=== PATIENT | female | born 1975 | race Caucasian/White ===

== ENCOUNTER 2021-12-12 09:36 | Outpatient (REF) | payer OTHER, SELFPAY ==
--- NOTE | ~2021-12-12 | CT_ITS ---
EXAMINATION: CT HEAD WITHOUT CONTRAST CLINICAL INFORMATION: Intractable headache COMPARISON: May 14, 2006 report TECHNIQUE: Contiguous axial imaging was performed from the skull base to vertex without intravenous administration of contrast. This CT examination was performed using dose optimization techniques as appropriate, variously including the following: *Automated exposure control *Adjustment of mA and/or kV according to patient size (this includes techniques or standardized protocols for targeted exams where dose is matched to indication/reason for exam; i.e. extremities or head) *Use of iterative reconstruction technique DLP: 629 mGy-cm FINDINGS: There is no evidence of acute intracranial hemorrhage or territorial infarction. No abnormal mass effect or midline shift is seen. Bosch to white matter differentiation is well preserved. No extra-axial fluid collections are identified. The ventricles are normal in size. There is no abnormal attenuation within the brain parenchyma. The osseous structures and soft tissues are normal. The visualized portions of the paranasal sinuses are well aerated. There is partial opacification of some right mastoid air cells. CT/CT head/brain wo con IMPRESSION: No acute intracranial pathology. Opacification of some right mastoid air cells.
--- NOTE | 2021-12-12 09:59 | EMG_ITS ---
This is a 46-year-old woman with a history of fibromyalgia for which she takes Tylenol with Codeine, who comes in with more than 1 year history of bilateral upper extremity numbness in the arms with the hands and arms going sleep. Neurological examination is normal. No Tinel or Phalen sign. IMPRESSION: Rule out neuropathy, rule out carpal tunnel syndrome. Nerve conduction EMG study: Normal motor and sensory nerve conduction velocities in the upper extremities. Normal EMG of the right C5-T1 innervated muscles. MD MONSE Roger/JOANN / [id number]
== END 2021-12-12 09:37 | disposition home or self-care (01) ==
LOC: HO.CT 09:36
PROVIDERS: PCP Internal Medicine; Visit Provider Internal Medicine
DX: G43.909 Migraine, unspecified, not intractable, without status migrainosus (principal); M54.12 Radiculopathy, cervical region
CPT/HCPCS: 70450; 95885; 95913

== ENCOUNTER 2023-10-17 10:54 | Outpatient (AMB) | payer OTHER, SELFPAY ==
[2023-10-17 10:56] VITALS: BP 110/64; PULSE 69; O2SAT 98; BMI 24.5
--- NOTE | 2023-10-17 10:56 | MHC.PC.OV ---
Vital Signs 10/17/23 10:56 Height 5 ft 2 in Weight 134 lb BMI 24.5 BP 110/64 Blood Pressure Location Lt brachial Position Sitting Pulse 69 Pulse Source Pulse Oximeter Pulse Oximetry (%) 98 Oxygen Delivery Method Room Air Intake Visit Reasons: follow up r/s from 10/14/23 Territory Manager Required: No Accompanied by: Self / Same As Patient Allergies aspirin Allergy (Unknown, Verified 10/17/23 12:08) Unknown ibuprofen [From Motrin] Allergy (Unknown, Verified 10/17/23 12:08) Unknown Medication List - Last Reconciled 10/17/23 by Troy Rush MD acetaminophen-codeine 300-60 mg 1 tab PO TID 14 days kgwzzkokiw-kqfkrhzmdkomx-zxhm 50-325-40 mg 1 tab PO BID-TID PRN 7 days Tobacco use date assessed: 10/17/23 Dental Screening Dental Screen Date: 10/17/23 Did you have a dental visit in the last 12 months?: No Did you have a dental problem in the last 6 months where you did not have access to dental care?: No Was dental information given to patient?: No HPI follow up r/s from 10/14/23 HPI Details Patient comes in today for her follow up visit States that she continues to experience recurrent headaches and needs her Fioricet Rx refilled Has also been experiencing increased pain over her left lower back lately Notes that the pain would often radiate down the back of her left leg She denies any recent injury or trauma to her lower back Also reports experiencing frequent pain and aching over both her shoulders and shoulder blade areas for while now - states that some days are better than others She denies any dizziness Denies any chest pains, no SOB No nausea/vomiting, no abdominal pain No change in bowel habits noted Is still not able to get her previously ordered labs done - states that she will try to get them done this weekend [facility] Medical History Radicular syndrome of upper limbs Smoker Migraine Low back pain Arthralgia Fibromyalgia Surgical History delivery delivered Family History Father Medical history unknown Mother Medical history unknown Other Substance use Social History Housing: House Alcohol intake: current Alcohol intake frequency: holidays/special occasions only Patient Tobacco Use Status: Current everyday Tobacco user Cigarettes Per Day: 6 e-Cigarette/Vaping Use: Never Used Second Hand Smoke Exposure: Yes service: No Current occupational status: unemployed Cognitive needs: No Hearing needs: No Vision needs: Yes Questionnaire PHQ-9 Over the last 2 weeks, how often have you been bothered by any of the following problems? 1. Little interest or pleasure in doing things: not at all 2. Feeling down, depressed, or hopeless: not at all 3. Trouble falling or staying asleep, or sleeping too much: not at all 4. Feeling tired or having little energy: not at all 5. Poor appetite or overeating: not at all 6. Feeling bad about yourself - or that you are a failure or have let yourself or your family down: not at all 7. Trouble concentrating on things, such as reading the newspaper or watching television: not at all 8. Moving or speaking so slowly that other people could have noticed. Or the opposite - being so fidgety or restless that you have been moving around a lot more than usual: not at all 9. Thoughts that you would be better off or of hurting yourself in some way: not at all Total score: 0 Depression Screening Interpretation: Negative Depression Screening Done: Yes 27699 - PHQ-9 Billing: Yes Source: Developed by Drs. Eric Purvis, Kaylah Mendez, Chris Null and colleagues, with an educational heath from [employer]. Thrive Questionnaire Date Thrive assessed: 10/17/23 I am a: Patient What is your living situation today?: I have a steady place to live Within the past 12 months, did the food you bought not last and you didn't have the money to get more?: Never true Within the past 12 months, did you worry whether your food would run out before you got money to buy more?: Never true Do you have trouble paying for medicines?: No Do you have trouble getting transportation to medical appointments?: No Do you have trouble paying your heating and electricity bill?: No Do you have trouble taking care of your child, family member or friend?: No Do you have trouble with day-to-day activities such as bathing, preparing meals, shopping, managing finances, etc.?: No Are you currently unemployed and looking for a job?: No Are you interested in more education?: No Please select the resources that you would like help with: None Currently or been in a relationship where the following occur: no concerns reported AUDIT C Alcohol Use Questionnaire (AUDIT-C) 1. How often do you have a drink containing alcohol?: Monthly or less 2. How many drinks containing alcohol do you have on a typical day when you are drinking?: 1 or 2 3. How often do you have six or more drinks on one occasion?: Never Total Score: 1 Score Reviewed/Action Taken: Yes LUIS-7 AMB Questionnaire LUIS-7 Date LUIS - 7 assessed: 10/17/23 Feeling nervous, anxious, or on edge: 2 = More than half the days Not being able to stop or control worryin = More than half the days Worrying too much about different things: 2 = More than half the days Trouble relaxin = More than half the days Being so restless that it is hard to sit still: 2 = More than half the days Becoming easily annoyed or irritable: 2 = More than half the days Feeling afraid as if something awful might happen: 2 = More than half the days Total LUIS-7 score (0-4 normal; 5-9 mild; 10-14 moderate; 15-21 severe): 14 Source: Developed by Drs. Eric Purvis, Kaylah Mendez, Chris Null and colleagues, with an educational heath from [employer]. Review of Systems Const Denies chills, Reports fatigue, Denies fever(s) and Reports headache(s) (on and off) ENT Denies dysphagia, Denies dizziness, Denies otalgia, Reports headache(s) (on and off), Reports neck pain, Denies odynophagia and Denies sore throat Card Denies chest pain, Denies palpitations and Denies dyspnea Resp Denies cough, Denies dyspnea and Denies wheezing GI Denies abdominal pain, Denies constipation, Denies dysphagia, Denies heartburn, Denies diarrhea, Denies nausea, Denies odynophagia and Denies vomiting Denies urinary frequency, Denies dysuria, Denies urinary incontinence and Denies urinary urgency Musc Reports back pain (over the left lower back), Reports myalgias (diffuse), Reports arthralgias (multiple joints, especially over both shoulders lately), Reports neck pain, Reports radiating pain into limb (into left leg) and Reports stiffness Skin/Breast Denies rash Neuro Denies dizziness, Reports headache(s) (on and off) and Reports paresthesias (recurrent, in both arms - see HPI) Endo Reports fatigue and Denies palpitations Delta/Lymph Denies easy bruising Aller/Immun Denies wheezing Physical exam (Primary Care) Vital Signs: Last Vital Signs Pulse 69 10/17/23 10:56 BP 110/64 10/17/23 10:56 Pulse Ox 98 10/17/23 10:56 Oxygen Delivery Method Room Air 10/17/23 10:56 BMI result Body Mass Index 24.5 Tobacco/Smoking Status: Tobacco use Status Tobacco use date assessed 10/17/23 10/17/23 11:03 Patient Tobacco Use Status Current everyday Tobacco 10/17/23 11:03 e-Cigarette/Vaping Use Never Used 10/17/23 11:03 PHQ-9: PHQ-9 Score PHQ-9: Total score 0 10/17/23 11:48 Depression Screening Interpretation: Negative Thrive Assessment: Date of Thrive Assessment Date Thrive assessed 10/17/23 10/17/23 11:03 Currently or been in a relationship where the following occur: no concerns reported Const General: no acute distress and alert HENMT Ears: TM's normal bilaterally and EAC's normal Throat: Yes posterior oropharynx normal and Yes tonsils normal (no TP congestion noted) Neck Neck: Yes no lymphadenopathy and Yes supple Thyroid: Thyroid normal Resp Auscultation: clear to auscultation bilaterally, no rales and no wheezes Cardio Rate: regular rate Rhythm: regular rhythm Heart sounds: no murmurs GI Palpation (GI): Soft to palpation and nontender Auscultation: normal bowel sounds Back/Spine/Pelvis Cervical Spine: cervical muscular tenderness (especially over the trapezius muscles around the shoulders bilaterally) Thoracic/Lumbar Spine: lumbar spinal tenderness (mild) Sacroiliac joints: on the left tender to palpation Skin Rashes: no rashes Extrem General: Yes no clubbing, cyanosis or edema Right upper extremity: shoulder/upper arm Details: tenderness Location: of the A-C joint and of the scapula Left upper extremity: shoulder/upper arm Details: tenderness Location: of the A-C joint and of the scapula Assessment and Plan Assessment & Plan (1) Left-sided low back pain with left-sided sciatica: Code(s): M54.42 - Lumbago with sciatica, left side Qualifiers: Chronicity: unspecified Qualified Code(s): M54.42 - Lumbago with sciatica, left side Plan: Suspect left SI joint dysfunction Lumbar spine x-rays done back in 2013 came out normal Will send her for SI joint x-rays as well as repeat lumbar spine x-rays for further evaluation (2) Bilateral shoulder pain: Code(s): M25.511 - Pain in right shoulder; M25.512 - Pain in left shoulder Qualifiers: Chronicity: unspecified Qualified Code(s): M25.511 - Pain in right shoulder; M25.512 - Pain in left shoulder Plan: Discussed that her shoulder symptoms are most likely related to her fibromyalgia Will send her for bilateral shoulder x-rays for further evaluation (3) Arthralgia: Code(s): M25.50 - Pain in unspecified joint Qualifiers: Joint pain location: unspecified Qualified Code(s): M25.50 - Pain in unspecified joint Plan: Most likely due to her fibromyalgia Continue Acetaminophen with Codeine 300-60 mg 1 tablet TID PRN Will send patient again for some labs for further evaluation; she was sent for labs a few months ago but still did not get them done Patient is advised that it has been almost 3 years now since she had any follow up labs done Advised that if her labs are unrevealing, will consider referring her to rheumatology for further evaluation and management (4) Fibromyalgia: Code(s): M79.7 - Fibromyalgia Plan: Patient is encouraged again to continue with regular exercises and physical activity to help better manage her fibromyalgia symptoms (5) Migraine: Code(s): G43.909 - Migraine, unspecified, not intractable, without status migrainosus Qualifiers: Intractability: not intractable Migraine type: unspecified Status migrainosus presence: without status migrainosus Qualified Code(s): G43.909 - Migraine, unspecified, not intractable, without status migrainosus Plan: Head CT done in December 2021 came out normal Reinforced avoidance of migraine headache triggers Continue Fioricet 1 tablet 3 to 4 times a day as needed - Rx refilled If headaches get worse, will consider repeat head CT for further evaluation (6) Radicular syndrome of upper limbs: Code(s): M54.12 - Radiculopathy, cervical region Plan: NCV and EMG of the upper extremities done in December 2021 came out normal Was sent for some labs for further evaluation months ago but is still not able to get them done yet; she is instructed to get her labs done LARON Was also referred to neurology for further evaluation and management - was reportedly seen by Dr. Franz a few months ago and we will try to get a copy of her neurology OV notes for review (7) Smoker: Code(s): F17.200 - Nicotine dependence, unspecified, uncomplicated Plan: Counseled again on smoking cessation Plan Follow up in 4 months Orders: Orders XR shoulder RT min 2V Today M25.511 - Pain in right shoulder, M25.512 - Pain in left shoulder XR lumbar spine 2-3V Today M54.42 - Lumbago with sciatica, left side XR sacroiliac joint min 3V Today M54.42 - Lumbago with sciatica, left side XR shoulder LT min 2V Today M25.511 - Pain in right shoulder, M25.512 - Pain in left shoulder Medications: Refilled mpvaeujjvf-bhbhbyjqzwiji-pfwm 50-325-40 mg 1 tab PO BID-TID 7 days PRN 21 tabs 3RF headache Coding Level of Care Code Est Pt Level 4 (39426) Diagnoses Left-sided low back pain with left-sided sciatica, unspecified chronicity M54.42 Chronicity: unspecified Bilateral shoulder pain, unspecified chronicity M25.511; M25.512 Chronicity: unspecified Arthralgia, unspecified joint M25.50 Joint pain location: unspecified Fibromyalgia M79.7 Migraine without status migrainosus, not intractable, unspecified migraine type G43.909 Intractability: not intractable Migraine type: unspecified Status migrainosus presence: without status migrainosus Radicular syndrome of upper limbs M54.12 Smoker F17.200
== END 2023-10-17 11:55 | disposition home or self-care (01) ==
PROVIDERS: PCP Internal Medicine; Visit Provider Internal Medicine
DX: M54.42 Lumbago with sciatica, left side (principal); M25.511 Pain in right shoulder; M25.512 Pain in left shoulder; M25.50 Pain in unspecified joint; M79.7 Fibromyalgia; G43.909 Migraine, unspecified, not intractable, without status migrainosus; M54.12 Radiculopathy, cervical region; F17.200 Nicotine dependence, unspecified, uncomplicated
CPT/HCPCS: 99214

== ENCOUNTER 2024-02-20 15:17 | Outpatient (AMB) | payer OTHER, SELFPAY ==
[2024-02-20 15:19] VITALS: BP 126/68; PULSE 76; O2SAT 98; BMI 23.8
--- NOTE | 2024-02-20 15:19 | MHC.PC.OV ---
Vital Signs 02/20/24 15:19 Height 5 ft 2 in Weight 130 lb 0.4 oz BMI 23.8 BP 126/68 Blood Pressure Location Lt brachial Position Sitting Pulse 76 Pulse Source Pulse Oximeter Pulse Oximetry (%) 98 Oxygen Delivery Method Room Air Intake Visit Reasons: 4mth f/u Termite [employer]per Required: No Allergies aspirin Allergy (Unknown, Verified 02/20/24 15:44) Unknown ibuprofen [From Motrin] Allergy (Unknown, Verified 02/20/24 15:44) Unknown Medication List - Last Reconciled 02/20/24 by Troy Rush MD acetaminophen-codeine 300-60 mg 1 tab PO TID 14 days unfydyphvj-tlqzokjxhrdtj-pcte 50-325-40 mg 1 tab PO BID-TID PRN 30 days tramadol 50 mg PO TID PRN 10 days Tobacco use date assessed: 02/20/24 Dental Screening Dental Screen Date: 02/20/24 HPI 4mt f/u HPI Details Patient comes in today for her follow up visit States that she still has recurrent headaches that are relieved promptly by her meds (Fioricet) that she takes PRN Also still has frequent pain and aching over both her shoulders and shoulder blade areas (due to her fibromyalgia) - states that some days are better than others She denies any dizziness Denies any chest pains, no increased SOB No nausea/vomiting, no abdominal pain No change in bowel habits noted She is still not able to get her previously ordered labs done yet - states that she will try to get them done tomorrow [facility] Medical History Radicular syndrome of upper limbs Smoker Migraine Low back pain Arthralgia Fibromyalgia Surgical History delivery delivered Family History Father Medical history unknown Mother Medical history unknown Other Substance use Social History Housing: House Alcohol intake: current Alcohol intake frequency: holidays/special occasions only Patient Tobacco Use Status: Current everyday Tobacco user Cigarettes Per Day: 6 e-Cigarette/Vaping Use: Never Used Second Hand Smoke Exposure: Yes service: No Current occupational status: unemployed Cognitive needs: No Hearing needs: No Vision needs: Yes Questionnaire PHQ-9 Over the last 2 weeks, how often have you been bothered by any of the following problems? 1. Little interest or pleasure in doing things: not at all 2. Feeling down, depressed, or hopeless: not at all 3. Trouble falling or staying asleep, or sleeping too much: not at all 4. Feeling tired or having little energy: not at all 5. Poor appetite or overeating: not at all 6. Feeling bad about yourself - or that you are a failure or have let yourself or your family down: not at all 7. Trouble concentrating on things, such as reading the newspaper or watching television: not at all 8. Moving or speaking so slowly that other people could have noticed. Or the opposite - being so fidgety or restless that you have been moving around a lot more than usual: not at all 9. Thoughts that you would be better off or of hurting yourself in some way: not at all Total score: 0 Depression Screening Interpretation: Negative Depression Screening Done: Yes 45919 - PHQ-9 Billing: Yes Source: Developed by Drs. Eric Purvis, Kaylah Mendez, Chris Null and colleagues, with an educational heath from [employer]. Thrive Questionnaire Date Thrive assessed: 02/20/24 I am a: Patient What is your living situation today?: I have a steady place to live Within the past 12 months, did the food you bought not last and you didn't have the money to get more?: Never true Within the past 12 months, did you worry whether your food would run out before you got money to buy more?: Never true Do you have trouble paying for medicines?: No Do you have trouble getting transportation to medical appointments?: No Do you have trouble paying your heating and electricity bill?: No Do you have trouble taking care of your child, family member or friend?: No Do you have trouble with day-to-day activities such as bathing, preparing meals, shopping, managing finances, etc.?: No Are you currently unemployed and looking for a job?: No Are you interested in more education?: No Please select the resources that you would like help with: None Currently or been in a relationship where the following occur: no concerns reported THRIVE Score: 0 AUDIT C Alcohol Use Questionnaire (AUDIT-C) 1. How often do you have a drink containing alcohol?: Monthly or less 2. How many drinks containing alcohol do you have on a typical day when you are drinking?: 1 or 2 3. How often do you have six or more drinks on one occasion?: Never Total Score: 1 Score Reviewed/Action Taken: Yes LUIS-7 AMB Questionnaire LUIS-7 Date LUIS - 7 assessed: 02/20/24 Feeling nervous, anxious, or on edge: 0 = Not at all Not being able to stop or control worryin = Not at all Worrying too much about different things: 0 = Not at all Trouble relaxin = Not at all Being so restless that it is hard to sit still: 0 = Not at all Becoming easily annoyed or irritable: 0 = Not at all Feeling afraid as if something awful might happen: 0 = Not at all Total LUIS-7 score (0-4 normal; 5-9 mild; 10-14 moderate; 15-21 severe): 0 Source: Developed by Drs. Eric Purvis, Kaylah Mendez, Chris Null and colleagues, with an educational heath from [employer]. LUIS-7 Assessment Billing LUIS-7 Assessment Tool: LUIS-7 Assessment 37269 Review of Systems Const Denies chills, Reports fatigue, Denies fever(s) and Reports headache(s) (on and off) ENT Denies dysphagia, Denies dizziness, Denies otalgia, Reports headache(s) (on and off), Reports neck pain, Denies odynophagia and Denies sore throat Card Denies chest pain, Denies palpitations and Denies dyspnea Resp Denies cough, Denies dyspnea and Denies wheezing GI Denies abdominal pain, Denies constipation, Denies dysphagia, Denies heartburn, Denies diarrhea, Denies nausea, Denies odynophagia and Denies vomiting Denies urinary frequency, Denies dysuria, Denies urinary incontinence and Denies urinary urgency Musc Reports back pain (over the left lower back), Reports myalgias (diffuse), Reports arthralgias (multiple joints, especially over both shoulders lately), Reports neck pain and Reports radiating pain into limb (into left leg) Skin/Breast Denies rash Neuro Denies dizziness, Reports headache(s) (on and off) and Reports paresthesias (recurrent, in both arms - see HPI) Psych Denies anxiety Endo Reports fatigue and Denies palpitations Delta/Lymph Denies easy bruising Aller/Immun Denies wheezing Physical exam (Primary Care) Vital Signs: Last Vital Signs Pulse 76 02/20/24 15:19 BP 126/68 02/20/24 15:19 Pulse Ox 98 02/20/24 15:19 Oxygen Delivery Method Room Air 02/20/24 15:19 BMI result Body Mass Index 23.8 Tobacco/Smoking Status: Tobacco use Status Tobacco use date assessed 02/20/24 02/20/24 15:23 Patient Tobacco Use Status Current everyday Tobacco 02/20/24 15:23 e-Cigarette/Vaping Use Never Used 02/20/24 15:23 PHQ-9: PHQ-9 Score PHQ-9: Total score 0 02/20/24 15:49 Depression Screening Interpretation: Negative Thrive Assessment: Date of Thrive Assessment Date Thrive assessed 02/20/24 02/20/24 15:23 Currently or been in a relationship where the following occur: no concerns reported Const General: no acute distress and alert HENMT Ears: TM's normal bilaterally and EAC's normal Throat: Yes posterior oropharynx normal and Yes tonsils normal (no TP congestion noted) Neck Neck: Yes no lymphadenopathy and Yes supple Thyroid: Thyroid normal Resp Auscultation: clear to auscultation bilaterally, no rales and no wheezes Cardio Rate: regular rate Rhythm: regular rhythm Heart sounds: no murmurs GI Palpation (GI): Soft to palpation and nontender Auscultation: normal bowel sounds Back/Spine/Pelvis Cervical Spine: cervical muscular tenderness (especially over the trapezius muscles around the shoulders bilaterally) Thoracic/Lumbar Spine: lumbar spinal tenderness (mild) Sacroiliac joints: on the left tender to palpation Skin Rashes: no rashes Extrem General: Yes no clubbing, cyanosis or edema Right upper extremity: shoulder/upper arm Details: tenderness Location: of the A-C joint and of the scapula Left upper extremity: shoulder/upper arm Details: tenderness Location: of the A-C joint and of the scapula Assessment and Plan Assessment & Plan (1) Left-sided low back pain with left-sided sciatica: Code(s): M54.42 - Lumbago with sciatica, left side Qualifiers: Chronicity: unspecified Qualified Code(s): M54.42 - Lumbago with sciatica, left side Plan: Suspect that this may be due to left SI joint dysfunction - patient states that this has subsided recently Lumbar spine x-rays done back in 2013 came out normal She was previously sent for SI joint x-rays as well as repeat lumbar spine x-rays for further evaluation but she did not get these done and would like to hold off on these for now (2) Bilateral shoulder pain: Code(s): M25.511 - Pain in right shoulder; M25.512 - Pain in left shoulder Qualifiers: Chronicity: unspecified Qualified Code(s): M25.511 - Pain in right shoulder; M25.512 - Pain in left shoulder Plan: She is advised again that her shoulder symptoms are most likely related to her fibromyalgia She was also sent for bilateral shoulder x-rays which were also not done (3) Arthralgia: Code(s): M25.50 - Pain in unspecified joint Qualifiers: Joint pain location: unspecified Qualified Code(s): M25.50 - Pain in unspecified joint Plan: Are most likely due to her fibromyalgia She was on Acetaminophen with Codeine 300-60 mg 1 tablet TID PRN but has been having a hard time getting this refilled lately due to unavailablity of the Rx and has been switched over to Tramadol 50 mg TID PRN in the meantime Will send patient again for some labs LARON for further evaluation - her previous lab orders are again updated today and advised that she should get these done LARON as she has not had any labs done since 2019 Advised that if her labs are unrevealing, will consider referring her to rheumatology for further evaluation and management (4) Fibromyalgia: Code(s): M79.7 - Fibromyalgia Plan: Patient is encouraged again to continue with regular exercises and physical activity to help better manage her fibromyalgia symptoms (5) Migraine: Code(s): G43.909 - Migraine, unspecified, not intractable, without status migrainosus Qualifiers: Intractability: not intractable Migraine type: unspecified Status migrainosus presence: without status migrainosus Qualified Code(s): G43.909 - Migraine, unspecified, not intractable, without status migrainosus Plan: Head CT done in December 2021 came out normal Reinforced avoidance of migraine headache triggers Continue Fioricet 1 tablet 3 to 4 times a day as needed - Rx refilled If headaches get worse, will consider repeat head CT for further evaluation (6) Radicular syndrome of upper limbs: Code(s): M54.12 - Radiculopathy, cervical region Plan: NCV and EMG of the upper extremities done in December 2021 came out normal She was sent for some labs for further evaluation months ago but is still not able to get them done yet; she is instructed to get her labs done LARON Follow up with neurology (Dr. Franz) as scheduled (7) Smoker: Code(s): F17.200 - Nicotine dependence, unspecified, uncomplicated Plan: Counseled again on smoking cessation (8) Colon cancer screening: Code(s): Z12.11 - Encounter for screening for malignant neoplasm of colon Plan: Her previous Cologuard order and she is requesting for a new referral - advised that she should try to get this done as soon as she gets the box to avoid letting the order again Plan Follow up in 4 months Orders: Referrals Cologuard Test Z12.11 - Encounter for screening for malignant neoplasm of colon Coding Level of Care Code Est Pt Level 4 (57658) Diagnoses Left-sided low back pain with left-sided sciatica, unspecified chronicity M54.42 Chronicity: unspecified Bilateral shoulder pain, unspecified chronicity M25.511; M25.512 Chronicity: unspecified Arthralgia, unspecified joint M25.50 Joint pain location: unspecified Fibromyalgia M79.7 Migraine without status migrainosus, not intractable, unspecified migraine type G43.909 Intractability: not intractable Migraine type: unspecified Status migrainosus presence: without status migrainosus Radicular syndrome of upper limbs M54.12 Smoker F17.200 Colon cancer screening Z12.11 Additional Codes LUIS-7 Assessment Billing - LUIS-7 Assessment Tool: LUIS-7 Assessment [id number] ([id number])
== END 2024-02-20 15:46 | disposition home or self-care (01) ==
PROVIDERS: PCP Internal Medicine; Visit Provider Internal Medicine
DX: G43.909 Migraine, unspecified, not intractable, without status migrainosus (principal); M79.7 Fibromyalgia; M54.42 Lumbago with sciatica, left side; M54.12 Radiculopathy, cervical region; F17.210 Nicotine dependence, cigarettes, uncomplicated
CPT/HCPCS: 99214

== ENCOUNTER 2024-07-02 15:31 | Outpatient (AMB) | payer OTHER, SELFPAY ==
--- NOTE | 2024-07-02 15:31 | MHC.PC.OV ---
Vital Signs 07/02/24 15:32 Height 5 ft 2 in Weight 138 lb 6 oz BMI 25.3 BP 110/62 Blood Pressure Location Lt brachial Position Sitting Pulse 75 Pulse Source Pulse Oximeter Pulse Oximetry (%) 98 Oxygen Delivery Method Room Air Intake Visit Reasons: 4mof\u Decal Transferrer Required: No Accompanied by: Self / Same As Patient Allergies aspirin Allergy (Unknown, Verified 07/02/24 16:09) Unknown ibuprofen [From Motrin] Allergy (Unknown, Verified 07/02/24 16:09) Unknown Medication List - Last Reconciled 07/02/24 by Troy Rush MD lnopzwzbgb-tzyeenyglsfke-ejki 50-325-40 mg 1 tab PO BID-TID PRN 30 days tramadol 50 mg PO TID PRN 10 days Tobacco use date assessed: 07/02/24 Dental Screening Dental Screen Date: 07/02/24 Did you have a dental visit in the last 12 months?: No Did you have a dental problem in the last 6 months where you did not have access to dental care?: No Was dental information given to patient?: No HPI 4mof\u HPI Details Patient comes in today for her follow up visit States that she still has recurrent headaches that are promptly relieved when she takes her med (Fioricet) - takes this PRN only Also still has frequent pain and aching over both her shoulders and shoulder blade areas (due to her fibromyalgia) but has noticed that her pain feels much worse over her entire right side for the past couple of months now, involving her neck, right shoulder, right elbow and even her right hip lately She denies any dizziness Denies any chest pains, no increased SOB No nausea/vomiting, no abdominal pain No change in bowel habits noted Needs her Tramadol Rx refilled today She is still not able to get her previously ordered labs done yet - states that she will try to get them done next Friday, which is a holiday and there should be much fewer people out on the road at the time [facility] Medical History Radicular syndrome of upper limbs Smoker Migraine Low back pain Arthralgia Fibromyalgia Surgical History delivery delivered Family History Father Medical history unknown Mother Medical history unknown Other Substance use Social History Housing: House Alcohol intake: current Alcohol intake frequency: holidays/special occasions only Patient Tobacco Use Status: Current everyday Tobacco user Cigarettes Per Day: 6 e-Cigarette/Vaping Use: Never Used Second Hand Smoke Exposure: Yes service: No Current occupational status: unemployed Cognitive needs: No Hearing needs: No Vision needs: Yes Questionnaire PHQ-9 Over the last 2 weeks, how often have you been bothered by any of the following problems? 1. Little interest or pleasure in doing things: not at all 2. Feeling down, depressed, or hopeless: not at all 3. Trouble falling or staying asleep, or sleeping too much: not at all 4. Feeling tired or having little energy: not at all 5. Poor appetite or overeating: not at all 6. Feeling bad about yourself - or that you are a failure or have let yourself or your family down: not at all 7. Trouble concentrating on things, such as reading the newspaper or watching television: not at all 8. Moving or speaking so slowly that other people could have noticed. Or the opposite - being so fidgety or restless that you have been moving around a lot more than usual: not at all 9. Thoughts that you would be better off or of hurting yourself in some way: not at all Total score: 0 Depression Screening Interpretation: Negative Depression Screening Done: Yes [id number] - PHQ-9 Billing: Yes Source: Developed by Drs. Eric Purvis, Kaylah Mendez, Chris Null and colleagues, with an educational heath from [employer]. Thrive Questionnaire Date Thrive assessed: 07/02/24 I am a: Patient What is your living situation today?: I have a steady place to live Within the past 12 months, did the food you bought not last and you didn't have the money to get more?: Never true Within the past 12 months, did you worry whether your food would run out before you got money to buy more?: Never true Do you have trouble paying for medicines?: No Do you have trouble getting transportation to medical appointments?: No Do you have trouble paying your heating and electricity bill?: No Do you have trouble taking care of your child, family member or friend?: No Do you have trouble with day-to-day activities such as bathing, preparing meals, shopping, managing finances, etc.?: No Are you currently unemployed and looking for a job?: No Are you interested in more education?: No Please select the resources that you would like help with: None Currently or been in a relationship where the following occur: No concerns reported THRIVE Score: 0 AUDIT C Alcohol Use Questionnaire (AUDIT-C) 1. How often do you have a drink containing alcohol?: Monthly or less 2. How many drinks containing alcohol do you have on a typical day when you are drinking?: 1 or 2 3. How often do you have six or more drinks on one occasion?: Never Total Score: 1 Score Reviewed/Action Taken: Yes LUIS-7 AMB Questionnaire LUIS-7 Date LUIS - 7 assessed: 07/02/24 Feeling nervous, anxious, or on edge: 0 = Not at all Not being able to stop or control worryin = Not at all Worrying too much about different things: 0 = Not at all Trouble relaxin = Not at all Being so restless that it is hard to sit still: 0 = Not at all Becoming easily annoyed or irritable: 0 = Not at all Feeling afraid as if something awful might happen: 0 = Not at all Total LUIS-7 score (0-4 normal; 5-9 mild; 10-14 moderate; 15-21 severe): 0 Source: Developed by Drs. Eric Purvis, Kaylah Mendez, Chris Null and colleagues, with an educational heath from [employer]. LUIS-7 Assessment Billing LUIS-7 Assessment Tool: LUIS-7 Assessment 19647 Review of Systems Const Denies chills, Reports fatigue, Denies fever(s) and Reports headache(s) (on and off) ENT Denies dysphagia, Denies dizziness, Denies otalgia, Reports headache(s) (on and off), Reports neck pain, Denies odynophagia and Denies sore throat Card Denies chest pain, Denies palpitations and Denies dyspnea Resp Denies cough, Denies dyspnea and Denies wheezing GI Denies abdominal pain, Denies constipation, Denies dysphagia, Denies heartburn, Denies diarrhea, Denies nausea, Denies odynophagia and Denies vomiting Denies urinary frequency, Denies dysuria, Denies urinary incontinence and Denies urinary urgency Musc Reports back pain (over the left lower back), Reports myalgias (diffuse), Reports arthralgias (multiple joints, especially over both shoulders; increased on R side lately), Reports neck pain and Reports radiating pain into limb (into left leg) Skin/Breast Denies rash Neuro Denies dizziness, Reports headache(s) (on and off) and Reports paresthesias (recurrent, in both arms - see HPI) Psych Denies anxiety Endo Reports fatigue and Denies palpitations Delta/Lymph Denies easy bruising Aller/Immun Denies wheezing Physical exam (Primary Care) Vital Signs: Last Vital Signs Pulse 75 07/02/24 15:32 BP 110/62 07/02/24 15:32 Pulse Ox 98 07/02/24 15:32 Oxygen Delivery Method Room Air 07/02/24 15:32 BMI result Body Mass Index 25.3 Tobacco/Smoking Status: Tobacco use Status Tobacco use date assessed 07/02/24 07/02/24 15:44 Patient Tobacco Use Status Current everyday Tobacco 07/02/24 15:44 e-Cigarette/Vaping Use Never Used 07/02/24 15:44 PHQ-9: PHQ-9 Score PHQ-9: Total score 0 07/02/24 15:44 Depression Screening Interpretation: Negative Thrive Assessment: Date of Thrive Assessment Date Thrive assessed 07/02/24 07/02/24 15:44 Currently or been in a relationship where the following occur: No concerns reported Const General: no acute distress and alert HENMT Ears: TM's normal bilaterally and EAC's normal Throat: Yes posterior oropharynx normal and Yes tonsils normal (no TP congestion noted) Neck Neck: Yes no lymphadenopathy and Yes supple Thyroid: Thyroid normal Resp Auscultation: clear to auscultation bilaterally, no rales and no wheezes Cardio Rate: regular rate Rhythm: regular rhythm Heart sounds: no murmurs GI Palpation (GI): Soft to palpation and nontender Auscultation: normal bowel sounds General: Yes no CVA tenderness Back/Spine/Pelvis Back: no CVA tenderness Cervical Spine: cervical muscular tenderness (especially over the trapezius muscles around the shoulders bilaterally) and Cervical spine tenderness Thoracic/Lumbar Spine: lumbar spinal tenderness (mild) Sacroiliac joints: on the left tender to palpation Skin Rashes: no rashes Extrem General: Yes no clubbing, cyanosis or edema Right upper extremity: shoulder/upper arm Details: tenderness Location: of the A-C joint and of the scapula and elbow/forearm Details: tenderness Location: of the olecranon; no swelling Left upper extremity: shoulder/upper arm Details: tenderness Location: of the A-C joint and of the scapula Right lower extremity: hip/thigh Details: tenderness Location: of the hip and normal ROM Assessment and Plan Assessment & Plan (1) Left-sided low back pain with left-sided sciatica: Code(s): M54.42 - Lumbago with sciatica, left side Qualifiers: Chronicity: unspecified Qualified Code(s): M54.42 - Lumbago with sciatica, left side Plan: Suspect that this may be due to left SI joint dysfunction - patient states that this has subsided recently Lumbar spine x-rays done back in 2013 came out normal She was previously sent for SI joint x-rays as well as repeat lumbar spine x-rays for further evaluation but she did not get these done and would like to hold off on these for now (2) Bilateral shoulder pain: Code(s): M25.511 - Pain in right shoulder; M25.512 - Pain in left shoulder Qualifiers: Chronicity: unspecified Qualified Code(s): M25.511 - Pain in right shoulder; M25.512 - Pain in left shoulder Plan: She is advised again that her shoulder symptoms are most likely related to her fibromyalgia She was also sent for bilateral shoulder x-rays which were also not done - x-rays reordered (3) Arthralgia: Code(s): M25.50 - Pain in unspecified joint Qualifiers: Joint pain location: unspecified Qualified Code(s): M25.50 - Pain in unspecified joint Plan: Are most likely due to her fibromyalgia She was on Acetaminophen with Codeine 300-60 mg 1 tablet TID PRN but has been having a hard time getting this refilled lately due to unavailablity of the Rx and has been switched over to Tramadol 50 mg TID PRN in the meantime Will send patient again for some labs LARON for further evaluation - her previous lab orders are over a year old now and new orders are placed Will also send her for x-rays of the cervical spine, right shoulder, right elbow and right hip for further evaluation - advised that she can get these done together with her labs early next week Advised that if her labs are unrevealing, will consider referring her to rheumatology for further evaluation and management (4) Fibromyalgia: Code(s): M79.7 - Fibromyalgia Plan: Patient is encouraged again to continue with regular exercises and physical activity to help better manage her fibromyalgia symptoms (5) Migraine: Code(s): G43.909 - Migraine, unspecified, not intractable, without status migrainosus Qualifiers: Migraine type: unspecified Status migrainosus presence: without status migrainosus Intractability: not intractable Qualified Code(s): G43.909 - Migraine, unspecified, not intractable, without status migrainosus Plan: Head CT done in December 2021 came out normal Reinforced avoidance of migraine headache triggers Continue Fioricet 1 tablet 3 to 4 times a day as needed If headaches get worse, will consider repeat head CT for further evaluation (6) Radicular syndrome of upper limbs: Code(s): M54.12 - Radiculopathy, cervical region Plan: NCV and EMG of the upper extremities done in December 2021 came out normal She was sent for some labs for further evaluation months ago but is still not able to get them done yet; she is instructed to get her labs done LARON - labs reordered Follow up with neurology (Dr. Franz) as scheduled (7) Smoker: Code(s): F17.200 - Nicotine dependence, unspecified, uncomplicated Plan: Counseled again on smoking cessation Plan Follow up in 4 months Orders: Orders XR elbow RT min 3V Today M25.521 - Pain in right elbow XR cervical spine 3V Today M54.2 - Cervicalgia Complete Blood Count Auto Diff Today D64.9 - Anemia, unspecified Lipid Panel Today E78.00 - Pure hypercholesterolemia, unspecified TSH reflex Free T4 Today E78.00 - Pure hypercholesterolemia, unspecified Vitamin D 25-OH Total Today E55.9 - Vitamin D deficiency, unspecified MANDO Reflex Titer and Pattern Today M25.50 - Pain in unspecified joint Lyme IgG/IgM w/reflex to WB Today M25.50 - Pain in unspecified joint XR shoulder RT min 2V Today M25.511 - Pain in right shoulder XR hip RT min 2V Today M25.551 - Pain in right hip Comprehensive [place]. Panel Fast Today E78.00 - Pure hypercholesterolemia, unspecified UA CC w/rflx Micro + Cult Today R30.0 - Dysuria Erythrocyte Sedimentation Rate Today M25.50 - Pain in unspecified joint, M79.7 - Fibromyalgia C Reactive Protein Today M25.50 - Pain in unspecified joint Rheumatoid Factor Today M25.50 - Pain in unspecified joint Medications: Refilled tramadol 50 mg PO TID 10 days PRN 30 tabs 0RF pain Coding Level of Care Code Est Pt Level 4 (26284) Diagnoses Left-sided low back pain with left-sided sciatica, unspecified chronicity M54.42 Chronicity: unspecified Bilateral shoulder pain, unspecified chronicity M25.511; M25.512 Chronicity: unspecified Arthralgia, unspecified joint M25.50 Joint pain location: unspecified Fibromyalgia M79.7 Migraine without status migrainosus, not intractable, unspecified migraine type G43.909 Migraine type: unspecified Status migrainosus presence: without status migrainosus Intractability: not intractable Radicular syndrome of upper limbs M54.12 Smoker F17.200 Additional Codes LUIS-7 Assessment Billing - LUIS-7 Assessment Tool: LUIS-7 Assessment 57053 ([id number])
[2024-07-02 15:32] VITALS: BP 110/62; PULSE 75; O2SAT 98; BMI 25.3
== END 2024-07-02 16:20 | disposition home or self-care (01) ==
PROVIDERS: PCP Internal Medicine; Visit Provider Internal Medicine
DX: M54.42 Lumbago with sciatica, left side (principal); M25.511 Pain in right shoulder; M25.512 Pain in left shoulder; M25.50 Pain in unspecified joint; M79.7 Fibromyalgia; G43.909 Migraine, unspecified, not intractable, without status migrainosus; M54.12 Radiculopathy, cervical region; F17.200 Nicotine dependence, unspecified, uncomplicated
CPT/HCPCS: 99214

== ENCOUNTER 2024-08-16 09:25 | Outpatient (REF) | payer OTHER, SELFPAY ==
--- NOTE | ~2024-08-16 | XR_ITS ---
EXAMINATION: Right hip series. Right elbow series. Right shoulder series. CLINICAL INFORMATION: Pain in the right hip right elbow and right shoulder COMPARISON: None. TECHNIQUE: 3 views of the right shoulder. 3 views of right elbow. 2 views of the right hip FINDINGS: Right shoulder: The bones joints and soft tissues are normal. Right elbow: Small well corticated ossification adjacent to the tip of the coronoid process. This could reflect age indeterminate fracture. No effusion. Remaining bones joints and soft tissues unremarkable. Right hip: Hip joint is surrounding bone and soft tissues are normal. XR/XR shoulder RT min 2V IMPRESSION: RIGHT SHOULDER: Normal. RIGHT ELBOW: Small ossification adjacent to the tip of the coronoid process of the ulna. This could reflect an age-indeterminate fracture versus a dystrophic calcification of the capsule.. No effusion. RIGHT HIP: Normal. Electronically signed by: Jeromy Hummel MD 08/22/2024 12:05 PM EDT
--- NOTE | ~2024-08-16 | XR_ITS ---
EXAMINATION: Right hip series. Right elbow series. Right shoulder series. CLINICAL INFORMATION: Pain in the right hip right elbow and right shoulder COMPARISON: None. TECHNIQUE: 3 views of the right shoulder. 3 views of right elbow. 2 views of the right hip FINDINGS: Right shoulder: The bones joints and soft tissues are normal. Right elbow: Small well corticated ossification adjacent to the tip of the coronoid process. This could reflect age indeterminate fracture. No effusion. Remaining bones joints and soft tissues unremarkable. Right hip: Hip joint is surrounding bone and soft tissues are normal. XR/XR hip RT min 2V IMPRESSION: RIGHT SHOULDER: Normal. RIGHT ELBOW: Small ossification adjacent to the tip of the coronoid process of the ulna. This could reflect an age-indeterminate fracture versus a dystrophic calcification of the capsule.. No effusion. RIGHT HIP: Normal. Electronically signed by: Jeromy Hummel MD 08/22/2024 12:05 PM EDT
--- NOTE | ~2024-08-16 | XR_ITS ---
EXAMINATION: XR CERVICAL SPINE 2 VIEWS CLINICAL INFORMATION: Cervicalgia M54.2. COMPARISON: XR Cervical spine 08/08/2006 (Report only). TECHNIQUE: 2 views of the cervical spine were obtained. FINDINGS: There are no prevertebral soft tissue abnormalities demonstrated. No compression fractures or subluxations are identified. Alignment is maintained at the atlanto-axial articulation. Mild degenerative disc disease with osteophyte formation and uncovertebral joint hypertrophy seen at C5/6. Posterior facet joints appear well-maintained The prevertebral soft tissues are normal. The foramina are patent. XR/XR cervical spine 2V IMPRESSION: Mild degenerative disc disease at C5/6. Electronically signed by: Jackson House MD 10/14/2024 09:13 AM LAY DANGELO
--- NOTE | ~2024-08-16 | XR_ITS ---
EXAMINATION: Right hip series. Right elbow series. Right shoulder series. CLINICAL INFORMATION: Pain in the right hip right elbow and right shoulder COMPARISON: None. TECHNIQUE: 3 views of the right shoulder. 3 views of right elbow. 2 views of the right hip FINDINGS: Right shoulder: The bones joints and soft tissues are normal. Right elbow: Small well corticated ossification adjacent to the tip of the coronoid process. This could reflect age indeterminate fracture. No effusion. Remaining bones joints and soft tissues unremarkable. Right hip: Hip joint is surrounding bone and soft tissues are normal. XR/XR elbow RT min 3V IMPRESSION: RIGHT SHOULDER: Normal. RIGHT ELBOW: Small ossification adjacent to the tip of the coronoid process of the ulna. This could reflect an age-indeterminate fracture versus a dystrophic calcification of the capsule.. No effusion. RIGHT HIP: Normal. Electronically signed by: Jeromy Hummel MD 08/22/2024 12:05 PM EDT
== END 2024-08-16 09:26 | disposition home or self-care (01) ==
LOC: HO.HMGCX 09:25
PROVIDERS: PCP Internal Medicine; Visit Provider Internal Medicine
DX: M25.521 Pain in right elbow (principal); M25.551 Pain in right hip; M25.511 Pain in right shoulder; M54.2 Cervicalgia
CPT/HCPCS: 72040; 73030; 73080; 73502

== ENCOUNTER 2024-10-29 15:24 | Outpatient (AMB) | payer OTHER, SELFPAY ==
[2024-10-29 15:25] VITALS: BP 120/76; PULSE 76; O2SAT 98; BMI 28.0
--- NOTE | 2024-10-29 15:25 | A.OFFPC_ITS ---
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 Required: No Accompanied by: Self / Same As Patient Allergies aspirin Allergy (Unknown, Verified 10/29/24 16:18) Unknown ibuprofen [From Motrin] Allergy (Unknown, Verified 10/29/24 16:18) Unknown Medication List - Last Reconciled 10/29/24 by Troy Rush MD [id number] 50-325-40 mg 1 tab PO BID-TID PRN 30 days tramadol 50 mg PO TID PRN 10 days Tobacco use date assessed: 10/29/24 Dental Screening Dental Screen Date: 10/29/24 Did you have a dental visit in the last 12 months?: No Did you have a dental problem in the last 6 months where you did not have access to dental care?: No Was dental information given to patient?: No HPI 4 month Follow up HPI Details Patient comes in today for her follow up visit States that she continues to experience increased pain on her entire right side, including her right hip, right elbow and right shoulder and that these have been going on for a few years now Would like to know how her x-rays done a couple of months ago came out She has not had any follow up labs done since 2019 despite having her labs ordered and reordered multiple times since States that she went to get them done last time but as she already drank her water in the morning, she was advised to come back another day - patient apparently drinks a half a glass of Pepsi every morning to get herself going and she refers to this as her water States that she feels that she has to drink her half a glass of Pepsi every morning or she has a hard time starting her day She also has not gotten her Cologuard test done after it was ordered for her twice in the past year due to her tendency to procrastinate; she continues to decline going for a screening colonoscopy Relates (+) on and off headaches; denies any dizziness Denies any chest pains, no increased SOB No nausea/vomiting, no abdominal pain No change in bowel habits noted Needs her Tramadol Rx refilled today [facility] Medical History Radicular syndrome of upper limbs Smoker Migraine Low back pain Arthralgia Fibromyalgia Surgical History delivery delivered Family History Father Medical history unknown Mother Medical history unknown Other Substance use Social History Housing: House Alcohol intake: current Alcohol intake frequency: holidays/special occasions only Patient Tobacco Use Status: Current everyday Tobacco user Cigarettes Per Day: 6 e-Cigarette/Vaping Use: Never Used Second Hand Smoke Exposure: Yes service: No Current occupational status: unemployed Cognitive needs: No Hearing needs: No Vision needs: Yes Questionnaire PHQ-9 Over the last 2 weeks, how often have you been bothered by any of the following problems? 1. Little interest or pleasure in doing things: not at all 2. Feeling down, depressed, or hopeless: not at all 3. Trouble falling or staying asleep, or sleeping too much: not at all 4. Feeling tired or having little energy: not at all 5. Poor appetite or overeating: not at all 6. Feeling bad about yourself - or that you are a failure or have let yourself or your family down: not at all 7. Trouble concentrating on things, such as reading the newspaper or watching television: not at all 8. Moving or speaking so slowly that other people could have noticed. Or the opposite - being so fidgety or restless that you have been moving around a lot more than usual: not at all 9. Thoughts that you would be better off or of hurting yourself in some way: not at all Total score: 0 Depression Screening Interpretation: Negative Depression Screening Done: Yes 69316 - PHQ-9 Billing: Yes Source: Developed by Drs. Eric Purvis, Kaylah Mnedez, Chris Null and colleagues, with an educational heaht from [employer]. Thrive Questionnaire Date Thrive assessed: 10/29/24 I am a: Patient What is your living situation today?: I have a steady place to live Within the past 12 months, did the food you bought not last and you didn't have the money to get more?: Never true Within the past 12 months, did you worry whether your food would run out before you got money to buy more?: Never true Do you have trouble paying for medicines?: No Do you have trouble getting transportation to medical appointments?: No Do you have trouble paying your heating and electricity bill?: No Do you have trouble taking care of your child, family member or friend?: No Do you have trouble with day-to-day activities such as bathing, preparing meals, shopping, managing finances, etc.?: No Are you currently unemployed and looking for a job?: No Are you interested in more education?: No Please select the resources that you would like help with: None Currently or been in a relationship where the following occur: No concerns reported THRIVE Score: 0 AUDIT C Alcohol Use Questionnaire (AUDIT-C) 1. How often do you have a drink containing alcohol?: Monthly or less 2. How many drinks containing alcohol do you have on a typical day when you are drinking?: 1 or 2 3. How often do you have six or more drinks on one occasion?: Never Total Score: 1 Score Reviewed/Action Taken: Yes LUIS-7 AMB Questionnaire LUIS-7 Date LUIS - 7 assessed: 10/29/24 Feeling nervous, anxious, or on edge: 0 = Not at all Not being able to stop or control worryin = Not at all Worrying too much about different things: 0 = Not at all Trouble relaxin = Not at all Being so restless that it is hard to sit still: 0 = Not at all Becoming easily annoyed or irritable: 0 = Not at all Feeling afraid as if something awful might happen: 0 = Not at all Total LUIS-7 score (0-4 normal; 5-9 mild; 10-14 moderate; 15-21 severe): 0 Source: Developed by Drs. Eric Purvis, Kaylah Mendez, Chris Null and colleagues, with an educational heath from [employer]. LUIS-7 Assessment Billing LUIS-7 Assessment Tool: LUIS-7 Assessment 21135 Review of Systems Const Denies chills, Reports fatigue, Denies fever(s) and Reports headache(s) (on and off) ENT Denies dysphagia, Denies dizziness, Denies otalgia, Reports headache(s) (on and off), Reports neck pain, Denies odynophagia and Denies sore throat Card Denies chest pain, Denies palpitations and Denies dyspnea Resp Denies cough, Denies dyspnea and Denies wheezing GI Denies abdominal pain, Denies constipation, Denies dysphagia, Denies heartburn, Denies diarrhea, Denies nausea, Denies odynophagia and Denies vomiting Denies urinary frequency, Denies dysuria, Denies urinary incontinence and Denies urinary urgency Musc Reports back pain (on and off), Reports myalgias (diffuse), Reports arthralgias (multiple joints, especially over both shoulders; increased on R side lately) and Reports neck pain Skin/Breast Denies rash Neuro Denies dizziness, Reports headache(s) (on and off) and Reports paresthesias (recurrent, in both arms - see HPI) Psych Denies anxiety Endo Reports fatigue and Denies palpitations Delta/Lymph Denies easy bruising Aller/Immun Denies wheezing Physical exam (Primary Care) Vital Signs: Last Vital Signs Pulse 76 10/29/24 15:25 BP 120/76 10/29/24 15:25 Pulse Ox 98 10/29/24 15:25 Oxygen Delivery Method Room Air 10/29/24 15:25 BMI result Body Mass Index 28.0 Tobacco/Smoking Status: Tobacco use Status Tobacco use date assessed 10/29/24 10/29/24 15:34 Patient Tobacco Use Status Current everyday Tobacco 10/29/24 15:34 e-Cigarette/Vaping Use Never Used 10/29/24 15:34 PHQ-9: PHQ-9 Score PHQ-9: Total score 0 10/29/24 16:12 Depression Screening Interpretation: Negative Thrive Assessment: Date of Thrive Assessment Date Thrive assessed 10/29/24 10/29/24 15:34 Currently or been in a relationship where the following occur: No concerns reported Const General: no acute distress and alert HENMT Ears: TM's normal bilaterally and EAC's normal Throat: Yes posterior oropharynx normal and Yes tonsils normal (no TP congestion noted) Neck Neck: Yes supple and No lymphadenopathy Thyroid: Thyroid normal Resp Auscultation: clear to auscultation bilaterally, no rales and no wheezes Cardio Rate: regular rate Rhythm: regular rhythm Heart sounds: no murmurs GI Palpation (GI): Soft to palpation and nontender Auscultation: normal bowel sounds General: Yes no CVA tenderness Back/Spine/Pelvis Back: no CVA tenderness Cervical Spine: cervical muscular tenderness (especially over the trapezius muscles around the shoulders bilaterally) and Cervical spine tenderness Thoracic/Lumbar Spine: lumbar spinal tenderness (mild) Skin Rashes: no rashes Extrem General: Yes no clubbing, cyanosis or edema Right upper extremity: shoulder/upper arm Details: tenderness Location: of the A-C joint and of the scapula and elbow/forearm Details: tenderness Location: of the olecranon; no swelling Left upper extremity: shoulder/upper arm Details: tenderness Location: of the A- C joint and of the scapula Right lower extremity: hip/thigh Details: tenderness Location: of the hip and normal ROM Coding Level of Care Code Est Pt Level 4 (33866) Diagnoses Bilateral shoulder pain, unspecified chronicity M25.511; M25.512 Chronicity: unspecified Arthralgia, unspecified joint M25.50 Joint pain location: unspecified Fibromyalgia M79.7 Migraine without status migrainosus, not intractable, unspecified migraine type G43.909 Migraine type: unspecified Status migrainosus presence: without status migrainosus Intractability: not intractable Radicular syndrome of upper limbs M54.12 Smoker F17.200 Colon cancer screening Z12.11 Additional Codes LUIS-7 Assessment Billing - LUIS-7 Assessment Tool: LUIS-7 Assessment 12457 ([id number]) PHQ-9 - 08198 - PHQ-9 Billing: Yes ([id number]) Assessment & Plan Assessment & Plan (1) Bilateral shoulder pain: Code(s): M25.511 - Pain in right shoulder; M25.512 - Pain in left shoulder Category: Medical Qualifiers: Chronicity: unspecified Qualified Code(s): M25.511 - Pain in right shoulder; M25.512 - Pain in left shoulder Plan: She is advised again that her shoulder symptoms are most likely related to her fibromyalgia Right shoulder x-rays done a couple of months ago came back normal (2) Arthralgia: Code(s): M25.50 - Pain in unspecified joint Category: Medical Qualifiers: Joint pain location: unspecified Qualified Code(s): M25.50 - Pain in unspecified joint Plan: These are also most likely related to her fibromyalgia She was on Acetaminophen with Codeine 300-60 mg 1 tablet TID PRN in the past but has been having a hard time getting this refilled for a while due to unavailability of the Rx and she was eventually switched over to Tramadol 50 mg TID PRN Will send patient again for some labs LARON for further evaluation - she has been sent for follow up labs quite a few times but still has not yet gotten them done She has been advised that if her labs are unrevealing, will consider referring her to rheumatology for further evaluation and management She finally had her cervical spine, shoulder, elbow and hip x-rays done a couple of months ago - x-rays of the cervical spine revealed (+) mild degenerative disc disease at C5-C6 X-rays of the shoulder and hip came back normal Elbow x-rays revealed (+) small ossification adjacent to the tip of the coronoid process of the ulna, possibly reflecting an age-indeterminate fracture versus a dystrophic calcification of the capsule. There is no effusion noted in the joint Patient now recalls that she fell on her elbow several months ago and thinks that this may have resulted in her current injury Will refer patient to orthopedics for further evaluation of her right elbow issue (3) Fibromyalgia: Code(s): M79.7 - Fibromyalgia Category: Medical Plan: Patient is again encouraged to continue with regular exercises and physical activity as tolerated to help better manage her fibromyalgia symptoms (4) Migraine: Code(s): G43.909 - Migraine, unspecified, not intractable, without status migrainosus Category: Medical Qualifiers: Migraine type: unspecified Status migrainosus presence: without status migrainosus Intractability: not intractable Qualified Code(s): G43.909 - Migraine, unspecified, not intractable, without status migrainosus Plan: Head CT done in December 2021 came out normal Reinforced avoidance of migraine headache triggers Continue Fioricet 1 tablet 3 to 4 times a day as needed If her headaches get worse, will consider repeat head CT and/or neurology referral for further evaluation (5) Radicular syndrome of upper limbs: Code(s): M54.12 - Radiculopathy, cervical region Category: Medical Plan: NCV and EMG of the upper extremities done in December 2021 came out normal She was sent for some labs for further evaluation a few times over the past couple of years but is still not able to get them done yet; she is instructed to get her labs done LARON - labs reordered Follow up with neurology (Dr. Franz) as scheduled (6) Smoker: Code(s): F17.200 - Nicotine dependence, unspecified, uncomplicated Category: Social Hx Plan: Patient is counseled again on smoking cessation (7) Colon cancer screening: Code(s): Z12.11 - Encounter for screening for malignant neoplasm of colon Category: Medical Plan: Will again reorder her Cologuard test and she is advised this time to try to get this done LARON Advised that she had this ordered twice and both times, her test was either or not done and if she still does not get her 3rd attempt done, there is no guarantee that [facility] will continue to send her a test kit Patient continues to decline referral for a screening colonoscopy at this time Plan Follow up in 4 months Orders: Orders Comprehensive [place]. Panel Fast 10/29/24 E78.00 - Pure hypercholesterolemia, unspecified, Z00.00 - Encounter for general adult medical examination without abnormal findings Vitamin D 25-OH Total 10/29/24 E55.9 - Vitamin D deficiency, unspecified, Z00.00 - Encounter for general adult medical examination without abnormal findings Vitamin B12 and Folate 10/29/24 E53.8 - Deficiency of other specified B group vitamins, Z00.00 - Encounter for general adult medical examination without abnormal findings Complete Blood Count Auto Diff 10/29/24 D64.9 - Anemia, unspecified, Z00.00 - Encounter for general adult medical examination without abnormal findings Lipid Panel 10/29/24 E78.00 - Pure hypercholesterolemia, unspecified, Z00.00 - Encounter for general adult medical examination without abnormal findings Hemoglobin A1c 10/29/24 E11.9 - Type 2 diabetes mellitus without complications, Z00.00 - Encounter for general adult medical examination without abnormal findings TSH reflex Free T4 10/29/24 E78.00 - Pure hypercholesterolemia, unspecified, Z00.00 - Encounter for general adult medical examination without abnormal findings UA CC w/rflx Micro + Cult 10/29/24 R30.0 - Dysuria, Z00.00 - Encounter for general adult medical examination without abnormal findings IRON PROFILE 12/27/24 D50.9 - Iron deficiency anemia, unspecified Referrals Orthopedics Referral M25.521 - Pain in right elbow, M25.551 - Pain in right hip Cologuard Test Z12.11 - Encounter for screening for malignant neoplasm of colon Medications: Refilled tramadol 50 mg PO TID 10 days PRN 30 tabs 0RF pain
== END 2024-10-29 16:20 | disposition home or self-care (01) ==
PROVIDERS: PCP Internal Medicine; Visit Provider Internal Medicine
DX: M25.511 Pain in right shoulder (principal); M25.512 Pain in left shoulder; M25.50 Pain in unspecified joint; M79.7 Fibromyalgia; G43.909 Migraine, unspecified, not intractable, without status migrainosus; M54.12 Radiculopathy, cervical region; F17.200 Nicotine dependence, unspecified, uncomplicated; Z12.11 Encounter for screening for malignant neoplasm of colon

== ENCOUNTER → 2024-10-29 15:24 | Outpatient (BNVA) | payer OTHER, SELFPAY | PROVIDERS: PCP Internal Medicine; Visit Provider Internal Medicine | DX: M25.511 Pain in right shoulder (principal); M25.512 Pain in left shoulder; M79.7 Fibromyalgia; M54.12 Radiculopathy, cervical region; F17.200 Nicotine dependence, unspecified, uncomplicated; Z71.6 Tobacco abuse counseling | CPT/HCPCS: 96127; 99212 ==

== ENCOUNTER 2024-12-10 08:30 | Outpatient (REF) | payer OTHER, SELFPAY ==
--- NOTE | ~2024-12-10 | XR_ITS ---
CLINICAL HISTORY: M25.559 - Pain in unspecified hip 3 view, pelvis and right hip Comparison: None Findings: The bones are intact. No significant arthritic change. The soft tissues are unremarkable. IMPRESSION: No acute findings. This document has been electronically signed by: Dick Matt MD on 12/11/2024 08:52:21
== END 2024-12-10 08:31 | disposition home or self-care (01) ==
LOC: HO.HOSX 08:30
PROVIDERS: Visit Provider Physician Assistant
DX: M25.551 Pain in right hip (principal); M79.7 Fibromyalgia; M54.50 Low back pain, unspecified
CPT/HCPCS: 73502; 99202

== ENCOUNTER 2024-12-10 09:51 | Outpatient (AMB) | payer OTHER, SELFPAY ==
--- NOTE | 2024-12-10 09:57 | MHC.OFFVIS ---
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 Hx of a fall about a year ago. Patient reports ongoing pain for a year. She states that her pain is near the groin area and on the lateral aspect. Patient mentions hat her pain is worse when she is walking. She mention that she has grinding She has tried and failed Aleve topical cream, NSAIDs and Tramodol. 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 Borden is a 49-year-old female who presents to the office today for evaluation of right hip pain. The patient points to the area of pain which is located along the lateral aspect of the hip as well as the low back and in the groin area. She reports that over a year ago she fell landing on the right side. Her pain is most difficult while trying to go from a sitting to standing position and she feels a grinding sensation deep within the hip joint. She reports that she has tried NSAIDs, Tylenol, and tramadol with little relief. [facility] Medical History Radicular syndrome of upper limbs Smoker Migraine Low back pain Arthralgia Fibromyalgia Surgical History delivery delivered Family History Father Medical history unknown Mother Medical history unknown Other Substance use Social History Housing: House Alcohol intake: current Alcohol intake frequency: holidays/special occasions only Patient Tobacco Use Status: Current everyday Tobacco user Cigarettes Per Day: 6 e-Cigarette/Vaping Use: Never Used Second Hand Smoke Exposure: Yes service: No Current occupational status: unemployed Cognitive needs: No Hearing needs: No Vision needs: Yes Review of Systems Const All systems reviewed & are unremarkable except as noted in HPI and below Physical Exam Vital Signs: BMI result Body Mass Index 28.0 Const General: cooperative, healthy appearing and no acute distress Resp Effort & Inspection: normal respiratory effort and able to speak in complete sentences Cardio Rate: regular rate Peripheral pulses: Peripheral pulses 2+ throughout Skin Lesions: no lesions Rashes: no rashes Extrem Other: Right hip: Normal to inspection. No ecchymosis, erythema, or edema. Full hip ROM in all planes. Mild tenderness to palpation over the greater trochanteric bursa. Groin pain as well as lateral-sided hip pain present with internal external rotation. Able to perform straight leg raise. NVI. Assessment & Plan Assessment & Plan (1) Fibromyalgia: Code(s): M79.7 - Fibromyalgia Category: Medical (2) Low back pain: Code(s): M54.5 - Low back pain Category: Medical Qualifiers: Chronicity: unspecified Back pain laterality: unspecified Sciatica presence: without sciatica Qualified Code(s): M54.5 - Low back pain (3) Right hip pain: Code(s): M25.551 - Pain in right hip Category: Medical Plan Ms. Borden is a 49-year-old female who presents to the office today for evaluation of right hip pain. The patient points to the area of pain which is located along the lateral aspect of the hip as well as the low back and in the groin area. She reports that over a year ago she fell landing on the right side. Her pain is most difficult while trying to go from a sitting to standing position and she feels a grinding sensation deep within the hip joint. She reports that she has tried NSAIDs, Tylenol, and tramadol with little relief. While in the office today, we discussed the role of MRI imaging to further evaluate the integrity of the right hip and surrounding structures. She will follow up with me after the MRIs obtained, sooner if needed. Should the MRI of the right hip be within normal limits the next step would be for Dr. Vibha beltran to evaluate her L-spine to see if there is any contributing factors leading to her pain. Follow-up after MRI right hip, sooner if needed. X-rays of the right hip and pelvis which were obtained while in the office today and were reviewed by me, Jaz Kelley PA-C, revealed no acute fracture dislocation. However, there is a small calcification lateral to the acetabulum on the AP view. Orders: Orders XR hip RT min 2V Today M25.559 - Pain in unspecified hip Coding Level of Care Code New Pt Level 4 (87137) Diagnoses Fibromyalgia M79.7 Low back pain without sciatica, unspecified back pain laterality, unspecified chronicity M54.5 Chronicity: unspecified Back pain laterality: unspecified Sciatica presence: without sciatica Right hip pain M25.551
[2024-12-10 10:06] VITALS: BMI 28.0
== END 2024-12-10 10:30 | disposition home or self-care (01) ==
PROVIDERS: PCP Internal Medicine; Visit Provider Physician Assistant
DX: M79.7 Fibromyalgia (principal); M54.50 Low back pain, unspecified; M25.551 Pain in right hip
CPT/HCPCS: 99204

== ENCOUNTER → 2024-12-10 09:53 | Outpatient (BNV) | payer OTHER, SELFPAY | PROVIDERS: Visit Provider Specialist | DX: M25.551 Pain in right hip (principal) | CPT/HCPCS: 73502 ==

== ENCOUNTER 2024-12-31 17:38 | Outpatient (REF) | payer OTHER, SELFPAY | END 2024-12-31 17:39 | disposition home or self-care (01) | LOC: HO.MRI 17:38 | PROVIDERS: PCP Internal Medicine; Visit Provider Physician Assistant | DX: M25.551 Pain in right hip (principal); M79.7 Fibromyalgia | CPT/HCPCS: 73721 ==

== ENCOUNTER → 2024-12-31 17:49 | Outpatient (BNV) | payer OTHER, SELFPAY | PROVIDERS: PCP Internal Medicine; Visit Provider Radiology Diagnostic Radiology | DX: M25.551 Pain in right hip (principal) | CPT/HCPCS: 73721 ==

== ENCOUNTER 2025-03-10 11:56 | Outpatient (AMB) | payer OTHER, SELFPAY ==
--- NOTE | 2025-03-10 11:57 | MHC.PC.OV ---
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 Required: No Accompanied by: Self / Same As Patient Allergies aspirin Allergy (Unknown, Verified 03/10/25 12:34) Unknown ibuprofen [From Motrin] Allergy (Unknown, Verified 03/10/25 12:34) Diarrhea Medication List - Last Reconciled 03/10/25 by Troy Rush MD [id number] 50-325-40 mg 1 tab PO BID-TID PRN 30 days tramadol 50 mg PO TID PRN 10 days Tobacco use date assessed: 03/10/25 Dental Screening Dental Screen Date: 03/10/25 HPI 3 month f/u [phone] HPI Details Patient's follow-up visit / consultation today is done over the phone - this is a Telehealth visit Patient's current medications have been reviewed and verified with patient and / or caregiver / proxy and have been updated accordingly in the medication list Patient states that she is still experiencing frequent/recurrent right hip pain She had her right hip MRI done a few weeks ago and is scheduled to see orthopedics at the end of the month (04/01/2025) for follow up Relates still (+) on and off headaches; denies any dizziness Denies any chest pains, no increased SOB No nausea/vomiting, no abdominal pain No change in bowel habits noted She has not had her follow up labs done yet - states that she will try to get them done LARON (orders updated) [facility] Medical History Radicular syndrome of upper limbs Smoker Migraine Low back pain Arthralgia Fibromyalgia Surgical History delivery delivered Family History Father Medical history unknown Mother Medical history unknown Other Substance use Social History Housing: House Alcohol intake: current Alcohol intake frequency: holidays/special occasions only Patient Tobacco Use Status: Current everyday Tobacco user Cigarettes Per Day: 6 e-Cigarette/Vaping Use: Never Used Second Hand Smoke Exposure: Yes service: No Current occupational status: unemployed Cognitive needs: No Hearing needs: No Vision needs: Yes Questionnaire PHQ-9 Over the last 2 weeks, how often have you been bothered by any of the following problems? 1. Little interest or pleasure in doing things: not at all 2. Feeling down, depressed, or hopeless: not at all 3. Trouble falling or staying asleep, or sleeping too much: not at all 4. Feeling tired or having little energy: not at all 5. Poor appetite or overeating: not at all 6. Feeling bad about yourself - or that you are a failure or have let yourself or your family down: not at all 7. Trouble concentrating on things, such as reading the newspaper or watching television: not at all 8. Moving or speaking so slowly that other people could have noticed. Or the opposite - being so fidgety or restless that you have been moving around a lot more than usual: not at all 9. Thoughts that you would be better off or of hurting yourself in some way: not at all Total score: 0 Depression Screening Interpretation: Negative Depression Screening Done: Yes 72715 - PHQ-9 Billing: Yes Source: Developed by Drs. Eric Purvis, Kaylah Mendez, Chris Null and colleagues, with an educational heath from [employer]. Thrive Questionnaire Date Thrive assessed: 03/10/25 I am a: Patient What is your living situation today?: I have a steady place to live Within the past 12 months, did the food you bought not last and you didn't have the money to get more?: Never true Within the past 12 months, did you worry whether your food would run out before you got money to buy more?: Never true Do you have trouble paying for medicines?: No Do you have trouble getting transportation to medical appointments?: No Do you have trouble paying your heating and electricity bill?: No Do you have trouble taking care of your child, family member or friend?: No Do you have trouble with day-to-day activities such as bathing, preparing meals, shopping, managing finances, etc.?: No Are you currently unemployed and looking for a job?: No Are you interested in more education?: No Please select the resources that you would like help with: None Currently or been in a relationship where the following occur: No concerns reported THRIVE Score: 0 AUDIT C Alcohol Use Questionnaire (AUDIT-C) 1. How often do you have a drink containing alcohol?: Monthly or less 2. How many drinks containing alcohol do you have on a typical day when you are drinking?: 1 or 2 3. How often do you have six or more drinks on one occasion?: Never Total Score: 1 Score Reviewed/Action Taken: Yes LUIS-7 AMB Questionnaire LUIS-7 Date LUIS - 7 assessed: 03/10/25 Feeling nervous, anxious, or on edge: 0 = Not at all Not being able to stop or control worryin = Not at all Worrying too much about different things: 0 = Not at all Trouble relaxin = Not at all Being so restless that it is hard to sit still: 0 = Not at all Becoming easily annoyed or irritable: 0 = Not at all Feeling afraid as if something awful might happen: 0 = Not at all Total LUIS-7 score (0-4 normal; 5-9 mild; 10-14 moderate; 15-21 severe): 0 Source: Developed by Drs. Eric Purvis, Kaylah Mendez, Chris Null and colleagues, with an educational heath from [employer]. LUIS-7 Assessment Billing LUIS-7 Assessment Tool: LUIS-7 Assessment 31929 Review of Systems Const Denies chills, Reports fatigue, Denies fever(s) and Reports headache(s) (on and off) ENT Denies dysphagia, Denies dizziness, Denies otalgia, Reports headache(s) (on and off), Reports neck pain, Denies odynophagia and Denies sore throat Card Denies chest pain, Denies palpitations and Denies dyspnea Resp Denies chest congestion, Denies cough and Denies dyspnea GI Denies abdominal pain, Denies constipation, Denies dysphagia, Denies heartburn, Denies diarrhea, Denies nausea, Denies odynophagia and Denies vomiting Denies urinary frequency, Denies dysuria, Denies urinary incontinence and Denies urinary urgency Musc Reports back pain (on and off), Reports myalgias (diffuse), Reports arthralgias (multiple joints, especially over both shoulders; increased in R hip) and Reports neck pain Skin/Breast Denies rash Neuro Denies dizziness, Reports headache(s) (on and off) and Reports paresthesias (recurrent, in both arms - see HPI) Psych Denies anxiety Endo Reports fatigue and Denies palpitations Delta/Lymph Denies easy bruising Physical exam (Primary Care) Vital Signs: Physical examination is not performed as visit / consultation today is done over the phone - Telehealth visit All physical findings indicated here, if present, are as per patient's and / or caregivers / proxy's report Tobacco/Smoking Status: Tobacco use Status Tobacco use date assessed 03/10/25 03/10/25 11:58 Patient Tobacco Use Status Current everyday Tobacco 03/10/25 11:58 e-Cigarette/Vaping Use Never Used 03/10/25 11:58 PHQ-9: PHQ-9 Score PHQ-9: Total score 0 03/10/25 12:43 Depression Screening Interpretation: Negative Thrive Assessment: Date of Thrive Assessment Date Thrive assessed 03/10/25 03/10/25 11:58 Currently or been in a relationship where the following occur: No concerns reported Telehealth Telehealth Telehealth Platform: Telephone ([employer]) Location of provider rendering services: practice address Location of patient: address on file Patient Identification confirmed using: Name, : Yes Telehealth method: voice only Patient verbally consented to treatment: Yes Patient verbally consented to billing insurance company: Yes Patient informed of any privacy concerns related to visit: Yes Minutes spent on Phone/Video with Pt.: 16 Coding Level of Care Code Tele Est Pt Level 3 (36865) Diagnoses Bilateral shoulder pain, unspecified chronicity M25.511; M25.512 Chronicity: unspecified Arthralgia, unspecified joint M25.50 Joint pain location: unspecified Fibromyalgia M79.7 Migraine without status migrainosus, not intractable, unspecified migraine type G43.909 Migraine type: unspecified Status migrainosus presence: without status migrainosus Intractability: not intractable Radicular syndrome of upper limbs M54.12 Smoker F17.200 Additional Codes LUIS-7 Assessment Billing - LUIS-7 Assessment Tool: LUIS-7 Assessment 34645 ([id number]) PHQ-9 - 26573 - PHQ-9 Billing: Yes ([id number]) Assessment & Plan Assessment & Plan (1) Bilateral shoulder pain: Code(s): M25.511 - Pain in right shoulder; M25.512 - Pain in left shoulder Category: Medical Qualifiers: Chronicity: unspecified Qualified Code(s): M25.511 - Pain in right shoulder; M25.512 - Pain in left shoulder Plan: Patient is advised again that her shoulder symptoms are most likely related to her fibromyalgia Right shoulder x-rays done a few months ago came back normal (2) Arthralgia: Code(s): M25.50 - Pain in unspecified joint Category: Medical Qualifiers: Joint pain location: unspecified Qualified Code(s): M25.50 - Pain in unspecified joint Plan: These are also most likely related to her fibromyalgia She was on Acetaminophen with Codeine 300-60 mg 1 tablet TID PRN in the past but has been having a hard time getting this refilled for a while due to unavailability of the Rx - she was eventually switched over to Tramadol 50 mg TID PRN Patient still has not been able to get her previously ordered labs done yet - these are updated and patient states that she will try to get these done LARON She has been advised that if her labs are unrevealing, will consider referring her to rheumatology for further evaluation and management She finally had her cervical spine, shoulder, elbow and hip x-rays done a few months ago - x-rays of the cervical spine revealed (+) mild degenerative disc disease at C5-C6 X-rays of the shoulder and hip came back normal Elbow x-rays revealed (+) small ossification adjacent to the tip of the coronoid process of the ulna, possibly reflecting an age-indeterminate fracture versus a dystrophic calcification of the capsule. There is no effusion noted in the joint She was referred to orthopedics for further evaluation and she was sent for right hip MRI, which patient had done a few weeks ago She is scheduled for orthopedics follow up at the end of the month (3) Fibromyalgia: Code(s): M79.7 - Fibromyalgia Category: Medical Plan: Patient is again encouraged to continue with regular exercises and physical activity as tolerated to help better manage her fibromyalgia symptoms (4) Migraine: Code(s): G43.909 - Migraine, unspecified, not intractable, without status migrainosus Category: Medical Qualifiers: Migraine type: unspecified Status migrainosus presence: without status migrainosus Intractability: not intractable Qualified Code(s): G43.909 - Migraine, unspecified, not intractable, without status migrainosus Plan: Head CT done in December 2021 came out normal Reinforced avoidance of migraine headache triggers Continue Fioricet 1 tablet 3 to 4 times a day as needed If her headaches get worse, will consider repeat head CT and/or neurology referral for further evaluation (5) Radicular syndrome of upper limbs: Code(s): M54.12 - Radiculopathy, cervical region Category: Medical Plan: NCV and EMG of the upper extremities done in December 2021 came out normal She was sent for some labs for further evaluation a few times over the past couple of years but is still not able to get them done yet; she is instructed to get her labs done LARON - previous lab orders updated again Follow up with neurology (Dr. Franz) as scheduled (6) Smoker: Code(s): F17.200 - Nicotine dependence, unspecified, uncomplicated Category: Social Hx Plan: Patient is counseled again on smoking cessation Plan Follow up as scheduled in June 2025
== END 2025-03-10 13:22 | disposition home or self-care (01) ==
LOC: HO.HMCH 11:56
PROVIDERS: PCP Internal Medicine; Visit Provider Internal Medicine
DX: M25.511 Pain in right shoulder (principal); M25.512 Pain in left shoulder; M25.50 Pain in unspecified joint; M79.7 Fibromyalgia; G43.909 Migraine, unspecified, not intractable, without status migrainosus; M54.12 Radiculopathy, cervical region; F17.200 Nicotine dependence, unspecified, uncomplicated

== ENCOUNTER → 2025-03-10 11:56 | Outpatient (BNVA) | payer OTHER, SELFPAY | PROVIDERS: PCP Internal Medicine; Visit Provider Internal Medicine | DX: M25.551 Pain in right hip (principal); M25.511 Pain in right shoulder; M25.512 Pain in left shoulder; M25.50 Pain in unspecified joint; M79.7 Fibromyalgia; G43.909 Migraine, unspecified, not intractable, without status migrainosus; M54.12 Radiculopathy, cervical region; F17.200 Nicotine dependence, unspecified, uncomplicated | CPT/HCPCS: 96127 ==

== ENCOUNTER 2025-05-27 11:29 | Outpatient (AMB) | payer OTHER, SELFPAY ==
--- NOTE | 2025-05-27 11:33 | MHC.OFFVIS ---
Vital Signs 05/27/25 11:40 Height 5 ft 2 in Weight 153 lb BMI 28.0 Intake Visit Reasons: OV - right hip MRI review Intake Note: Yoanna is a 49 year old female who presents today for a Right Hip MRI Review. Reports a fall >1 year ago. Patient reports swelling on her right hip. She was told that she had bone chips in her right hip. IMPRESSION: Mild relatively linear intermediate signal intensity along the base of the right anterior superior labrum may be degenerative in nature. Nevertheless, labral tear cannot be definitely excluded. No evidence of paralabral cyst. Mild tendinosis/minimal peritendinosis at level of right gluteus medius muscle. Minimal peritendinosis at level of right gluteus minimus muscle. Allergies aspirin Allergy (Unknown, Verified 05/27/25 11:39) Unknown ibuprofen (From Motrin) Allergy (Unknown, Verified 05/27/25 11:39) Diarrhea HPI HPI OV - right hip MRI review: Details: Ms. Borden is a 49-year-old female who presents to the office today for MRI review of the right hip. She continues to report pain and burning on that extends from her lower back to the anterior aspect of her abdomen. She also reports occasionally she has pain that goes down the entire right lower extremity. Additionally, she reports that there has been increasing weakness in the right lower extremity. [facility] Medical History Radicular syndrome of upper limbs Smoker Migraine Low back pain Arthralgia Fibromyalgia Surgical History delivery delivered Family History Father Medical history unknown Mother Medical history unknown Other Substance use Social History Housing: House Alcohol intake: current Alcohol intake frequency: holidays/special occasions only Patient Tobacco Use Status: Current everyday Tobacco user Cigarettes Per Day: 6 e-Cigarette/Vaping Use: Never Used Second Hand Smoke Exposure: Yes service: No Current occupational status: unemployed Cognitive needs: No Hearing needs: No Vision needs: Yes Review of Systems Const All systems reviewed & are unremarkable except as noted in HPI and below Physical Exam Vital Signs: BMI result Body Mass Index 28.0 Const General: cooperative, healthy appearing and no acute distress Resp Effort & Inspection: normal respiratory effort and able to speak in complete sentences Skin Lesions: no lesions Rashes: no rashes Extrem Other: Right hip: Normal to inspection. No ecchymosis, erythema, or edema. Full hip ROM in all planes. Mild tenderness to palpation over the greater trochanteric bursa. Groin pain as well as lateral-sided hip pain present with internal external rotation. Able to perform straight leg raise. NVI. Assessment & Plan Assessment & Plan (1) Fibromyalgia: Code(s): M79.7 - Fibromyalgia Category: Medical (2) Low back pain: Code(s): M54.5 - Low back pain Category: Medical Qualifiers: Chronicity: unspecified Back pain laterality: unspecified Sciatica presence: without sciatica Qualified Code(s): M54.5 - Low back pain Plan Ms. Borden is a 49-year-old female who presents to the office today for MRI review of the right hip. She continues to report pain and burning on that extends from her lower back to the anterior aspect of her abdomen. She also reports occasionally she has pain that goes down the entire right lower extremity. Additionally, she reports that there has been increasing weakness in the right lower extremity. On the office today, we discussed the imaging results of the MRI for the right hip. There is no orthopedic surgical intervention that is recommended at this time. I have recommended that the patient follow-up with Dr. More for further investigation of a low back pathology that is contributing to her pain. Patient insists that no one will be able to diagnose her. However, I did try to encourage the patient that we will continue to investigate to try and help her pain. She will follow up with Dr. More, sooner if needed. MRI obtained on 01/04/2025: IMPRESSION: Mild relatively linear intermediate signal intensity along the base of the right anterior superior labrum may be degenerative in nature. Nevertheless, labral tear cannot be definitely excluded. No evidence of paralabral cyst. Mild tendinosis/minimal peritendinosis at level of right gluteus medius muscle. Minimal peritendinosis at level of right gluteus minimus muscle. Coding Level of Care Code Est Pt Level 3 (36848) Diagnoses Fibromyalgia M79.7 Low back pain without sciatica, unspecified back pain laterality, unspecified chronicity M54.5 Chronicity: unspecified Back pain laterality: unspecified Sciatica presence: without sciatica
[2025-05-27 11:40] VITALS: BMI 28.0
== END 2025-05-27 12:31 | disposition home or self-care (01) ==
LOC: HO.HOS 11:30
PROVIDERS: PCP Internal Medicine; Visit Provider Physician Assistant
DX: M79.7 Fibromyalgia (principal); M54.50 Low back pain, unspecified
CPT/HCPCS: 99213

== ENCOUNTER → 2025-05-27 11:29 | Outpatient (BNVA) | payer OTHER, SELFPAY | PROVIDERS: PCP Internal Medicine; Visit Provider Physician Assistant | DX: M79.7 Fibromyalgia (principal); M54.50 Low back pain, unspecified | CPT/HCPCS: 99212 ==

== ENCOUNTER 2025-07-08 08:40 | Outpatient (AMB) | payer OTHER, SELFPAY ==
--- NOTE | 2025-07-08 08:52 | A.OFFVIS_ITS ---
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 Patient was referred by her PCP. At today's visit patient states that for the past two years she has had back pain, she states that she fell/slipped on ice at home. Patient states that for the past 30 years she was diagnosed with fibromyalgia. She states that she has a burning sensation in the right hip with mild swelling. No physical therapy. Allergies aspirin Allergy (Unknown, Verified 07/08/25 08:57) Unknown ibuprofen (From Motrin) Allergy (Unknown, Verified 07/08/25 08:57) Diarrhea Medication List - Last Reconciled 07/08/25 by Blanka Lutz MD [id number] 50-325-40 mg 1 tab PO BID-TID PRN 30 days tramadol 50 mg PO TID PRN 10 days HPI Comments Details: Patient previously seen by Jaz SPAIN for right hip pain. MRI done. Deemed not needing surgical intervention. Referred to physiatry. Also reviewed PCP notes. Patient history of fibromyalgia. PCP prescribes pain medication for her. MRI hip results reviewed, as below. No lumbar x-rays available for my review. She maintains that the pain is lateral hip, feels swollen, wraps around front and back. This pain has been ongoin for 2 years. She did notice some recent pulling sensation on right groin, especially walking. Walking worsens pain. No numbness or weakness on legs/feet. No bowel/bladder incontinence. Though when she gets severe pain, she gets diarrhea. The only injection was more than 20 years, shoulder. No injection for hip or back. No recent PT - and she does not believe in PT and does not want to go for PT . Complaining that pain worse after even trying to move during MRI for hip. [facility] Medical History Radicular syndrome of upper limbs Smoker Migraine Low back pain Arthralgia Fibromyalgia Surgical History delivery delivered Family History Father Medical history unknown Mother Medical history unknown Other Substance use Social History Housing: House Alcohol intake: current Alcohol intake frequency: holidays/special occasions only Patient Tobacco Use Status: Current everyday Tobacco user Cigarettes Per Day: 6 e-Cigarette/Vaping Use: Never Used Second Hand Smoke Exposure: Yes service: No Current occupational status: unemployed Cognitive needs: No Hearing needs: No Vision needs: Yes Review of Systems Const All systems reviewed & are unremarkable except as noted in HPI and below Physical Exam Exam Exam: Constitutional: Patient appears to be in no acute distress, well nourished and well developed. Patient was appropriately conversant and oriented. Good historian. MSK: No specific abnormalities found on inspection of the spine and all extremities. No pain with palpation over the lumbar area. There is some tenderness over right SI joint and right piriformis. Most of the tenderness is around and near right greater trochanteric. Lumbar ROM was full. Bilateral hip, knee and ankle ROM WNL. No ligamentous laxity or crepitance. No increased effusion. Straight-leg raising test negative. FABERE test positive right lateral back/hip pain. Strength is 5/5 in all muscle groups tested. No increased tone noted. Neurological: Neurologic examination of the upper and lower extremities was nonfocal with intact sensation, muscle stretch reflexes and without focal motor deficits . Sweeney?s negative bilaterally. Babinski was down going bilaterally. Clonus was negative. Gait is antalgic without loss of balance. Vital Signs: BMI result Body Mass Index 26.9 Results Reviewed Results Reviewed: Ordering Physician: Jaz Kelley PA-C Date of Service: 12/31/24 Procedure(s): MR hip RT wo con Accession Number(s): [id number] cc: Troy Rush MD; Jaz Kelley PA-C~ CLINICAL HISTORY: M25.50 - Pain in unspecified joint MR right hip without gadolinium Comparison: None Findings: No acute fracture or pathologic bone lesion. No joint effusion. Mild relatively linear intermediate signal intensity along the base of the right anterior superior labrum may be degenerative in nature. Nevertheless, labral tear cannot be definitely excluded. No evidence of paralabral cyst. Intact cartilage. Mild tendinosis/minimal peritendinosis at level of right gluteus medius muscle. Minimal peritendinosis at level of right gluteus minimus muscle. Mild tendinosis versus degenerative signal changes at level of the hamstring origins bilaterally. Otherwise visualized soft tissues are unremarkable. No tendon or muscle abnormalities. IMPRESSION: Mild relatively linear intermediate signal intensity along the base of the right anterior superior labrum may be degenerative in nature. Nevertheless, labral tear cannot be definitely excluded. No evidence of paralabral cyst. Mild tendinosis/minimal peritendinosis at level of right gluteus medius muscle. Minimal peritendinosis at level of right gluteus minimus muscle. This document has been electronically signed by: Alessandra Truong MD on 01/04/2025 13:18:17 Ordering Physician: Jaz Kelley PA-C Date of Service: 12/10/24 Procedure(s): XR hip RT min 2V Accession Number(s): [id number] cc: Jaz Kelley PA-C~ CLINICAL HISTORY: M25.559 - Pain in unspecified hip 3 view, pelvis and right hip Comparison: None Findings: The bones are intact. No significant arthritic change. The soft tissues are unremarkable. IMPRESSION: No acute findings. This document has been electronically signed by: Dick Matt MD on 12/11/2024 08:52:21 I reviewed records from the following: Ortho PCP Assessment & Plan Assessment & Plan (1) Trochanteric bursitis of right hip: Code(s): M70.61 - Trochanteric bursitis, right hip Category: Medical (2) Sacroiliac joint dysfunction of right side: Code(s): M53.3 - Sacrococcygeal disorders, not elsewhere classified Category: Medical (3) Piriformis syndrome of right side: Code(s): G57.01 - Lesion of sciatic nerve, right lower limb Category: Medical (4) Fibromyalgia: Code(s): M79.7 - Fibromyalgia Category: Medical Plan She maintains, and I agree, that pain is on right lateral hip area. There are no signs for lumbar radiculopathy or myelopathy, and she denies lower back pain. Exam shows possible SI joint dysfunction versus piriformis versus greater trochanteric bursitis. We discussed treatment options and doing a process of elimination. We will start by trial of right greater trochanter injection, to be scheduled. Patient eager to proceed. She does not want to go to physical therapy. Assessment and plan discussed with patient, and patient was agreeable. All questions were answered thoroughly. I will see for the right GT injection. Blanka Lutz MD, BROOK Board Certified, [place] [employer] and Rehabilitation (ABPMR) Board Certified, [place] [employer] Electro[employer] (ABEM) Coding Level of Care Code Est Pt Level 4 (29922) Diagnoses Trochanteric bursitis of right hip M70.61 Sacroiliac joint dysfunction of right side M53.3 Piriformis syndrome of right side G57.01 Fibromyalgia M79.7
[2025-07-08 08:57] VITALS: BMI 26.9
== END 2025-07-08 09:38 | disposition home or self-care (01) ==
LOC: HO.HOS 08:41
PROVIDERS: PCP Internal Medicine; Visit Provider Physical Medicine & Rehabilitation
DX: M70.61 Trochanteric bursitis, right hip (principal); M53.3 Sacrococcygeal disorders, not elsewhere classified; G57.01 Lesion of sciatic nerve, right lower limb; M79.7 Fibromyalgia
CPT/HCPCS: 99204

== ENCOUNTER → 2025-07-08 08:40 | Outpatient (BNVA) | payer OTHER, SELFPAY | PROVIDERS: PCP Internal Medicine; Visit Provider Physical Medicine & Rehabilitation | DX: M70.61 Trochanteric bursitis, right hip (principal); M53.3 Sacrococcygeal disorders, not elsewhere classified; G57.01 Lesion of sciatic nerve, right lower limb; M79.7 Fibromyalgia | CPT/HCPCS: 99202 ==

== ENCOUNTER 2025-08-26 15:29 | Outpatient (AMB) | payer OTHER, SELFPAY ==
--- NOTE | 2025-08-26 15:38 | MHC.PC.OV ---
Vital Signs 08/26/25 15:39 Height 5 ft 2 in Weight 159 lb 2 oz BMI 29.1 BP 120/76 Blood Pressure Location Lt brachial Position Sitting Pulse 70 Pulse Source Pulse Oximeter Pulse Oximetry (%) 97 Oxygen Delivery Method Room Air Intake Visit Reasons: 4 mths f/u lima from 02/04/25 [employer] Required: No Accompanied by: Self / Same As Patient Allergies aspirin Allergy (Unknown, Verified 08/26/25 16:06) Unknown ibuprofen (From Motrin) Allergy (Unknown, Verified 08/26/25 16:06) Diarrhea Medication List - Last Reconciled 08/26/25 by Troy Rush MD [id number] 50-325-40 mg 1 tab PO BID-TID PRN 30 days tramadol 50 mg PO TID PRN 10 days Tobacco use date assessed: 08/26/25 Dental Screening Dental Screen Date: 08/26/25 Did you have a dental visit in the last 12 months?: No Did you have a dental problem in the last 6 months where you did not have access to dental care?: No Was dental information given to patient?: No HPI 4 mths f/u lima from 02/04/25 HPI Details Patient comes in today for her follow up visit States that she feels okay and is managing her current issues as usual She still has not yet gotten any of her previously ordered labs done even though they were ordered almost a year ago now She has also not gotten any of her past Cologuard tests done at this time (3 tests have already been ordered so far) as she states that she decided that it was not worth doing (after giving it some thought) if there is a chance that she is just going to get a false positive test States that she is pooping fine and does not feel that she has any issues at this time even though we have explained to her more than once that colon cancer usually does not present with any obvious symptoms in the beginning and by the time she has any symptoms, her condition may already be in the late stages (ironically, patient also again mentions as she had in the past that she does have a family Hx of colon cancer) She denies any dizziness and states that her headaches have been adequately managed by PRN Fioricet Denies any chest pains, no increased SOB No nausea/vomiting, no abdominal pain No change in bowel habits noted PFSH Medical History Radicular syndrome of upper limbs Smoker Migraine Low back pain Arthralgia Fibromyalgia Surgical History delivery delivered Family History Father Medical history unknown Mother Medical history unknown Other Substance use Social History Housing: House Alcohol intake: current Alcohol intake frequency: holidays/special occasions only Patient Tobacco Use Status: Current everyday Tobacco user Cigarettes Per Day: 6 e-Cigarette/Vaping Use: Never Used Second Hand Smoke Exposure: Yes service: No Current occupational status: unemployed Cognitive needs: No Hearing needs: No Vision needs: Yes Questionnaire PHQ-9 Over the last 2 weeks, how often have you been bothered by any of the following problems? 1. Little interest or pleasure in doing things: not at all 2. Feeling down, depressed, or hopeless: not at all 3. Trouble falling or staying asleep, or sleeping too much: not at all 4. Feeling tired or having little energy: several days 5. Poor appetite or overeating: not at all 6. Feeling bad about yourself - or that you are a failure or have let yourself or your family down: not at all 7. Trouble concentrating on things, such as reading the newspaper or watching television: not at all 8. Moving or speaking so slowly that other people could have noticed. Or the opposite - being so fidgety or restless that you have been moving around a lot more than usual: not at all 9. Thoughts that you would be better off or of hurting yourself in some way: not at all Total score: 1 Depression Screening Interpretation: Negative Depression Screening Done: Yes 48980 - PHQ-9 Billing: Yes Source: Developed by Drs. Eric Purvis, Kaylah Mendez, Chris Null and colleagues, with an educational heath from [employer]. Thrive Questionnaire Date Thrive assessed: 08/26/25 I am a: Patient What is your living situation today?: I have a steady place to live Within the past 12 months, did the food you bought not last and you didn't have the money to get more?: I choose not to answer this question Within the past 12 months, did you worry whether your food would run out before you got money to buy more?: I choose not to answer this question Do you have trouble paying for medicines?: No Do you have trouble getting transportation to medical appointments?: No Do you have trouble paying your heating and electricity bill?: No Do you have trouble taking care of your child, family member or friend?: I choose not to answer this question Do you have trouble with day-to-day activities such as bathing, preparing meals, shopping, managing finances, etc.?: I choose not to answer this question Are you currently unemployed and looking for a job?: I choose not to answer this question Are you interested in more education?: I choose not to answer this question Please select the resources that you would like help with: None Currently or been in a relationship where the following occur: I choose not to answer THRIVE Score: 0 AUDIT C Alcohol Use Questionnaire (AUDIT-C) 1. How often do you have a drink containing alcohol?: Monthly or less 2. How many drinks containing alcohol do you have on a typical day when you are drinking?: 1 or 2 3. How often do you have six or more drinks on one occasion?: Less than monthly Total Score: 2 Score Reviewed/Action Taken: Yes LUIS-7 AMB Questionnaire LUIS-7 Date LUIS - 7 assessed: 03/10/25 Feeling nervous, anxious, or on edge: 0 = Not at all Not being able to stop or control worryin = Not at all Worrying too much about different things: 0 = Not at all Trouble relaxin = Not at all Being so restless that it is hard to sit still: 0 = Not at all Becoming easily annoyed or irritable: 0 = Not at all Feeling afraid as if something awful might happen: 0 = Not at all Total LUIS-7 score (0-4 normal; 5-9 mild; 10-14 moderate; 15-21 severe): 0 Source: Developed by Drs. Eric Purvis, Kaylah Mendez, Chris Null and colleagues, with an educational heath from [employer]. Review of Systems Const Denies chills, Denies fatigue, Denies fever(s) and Reports headache(s) (on and off) ENT Denies dysphagia, Denies dizziness, Denies otalgia, Reports headache(s) (on and off), Reports neck pain, Denies odynophagia and Denies sore throat Card Denies chest pain, Denies palpitations and Denies dyspnea Resp Denies chest congestion, Denies cough and Denies dyspnea GI Denies abdominal pain, Denies constipation, Denies dysphagia, Denies heartburn, Denies diarrhea, Denies nausea, Denies odynophagia and Denies vomiting Denies difficulty voiding, Denies dysuria, Denies urinary incontinence and Denies urinary urgency Musc Reports back pain (on and off), Reports myalgias (diffuse), Reports arthralgias (multiple joints, especially over both shoulders; increased in R hip) and Reports neck pain Skin/Breast Denies rash Neuro Denies dizziness, Reports headache(s) (on and off) and Reports paresthesias (on and off in both arms) Psych Denies anxiety Endo Denies fatigue and Denies palpitations Delta/Lymph Denies easy bruising Physical exam (Primary Care) Vital Signs: Last Vital Signs Pulse 70 08/26/25 15:39 BP 120/76 08/26/25 15:39 Pulse Ox 97 08/26/25 15:39 Oxygen Delivery Method Room Air 08/26/25 15:39 BMI result Body Mass Index 29.1 Tobacco/Smoking Status: Tobacco use Status Tobacco use date assessed 08/26/25 08/26/25 15:45 Patient Tobacco Use Status Current everyday Tobacco 08/26/25 15:45 e-Cigarette/Vaping Use Never Used 08/26/25 15:45 PHQ-9: PHQ-9 Score PHQ-9: Total score 1 08/26/25 15:57 Depression Screening Interpretation: Negative Thrive Assessment: Date of Thrive Assessment Date Thrive assessed 03/10/25 08/26/25 15:45 Currently or been in a relationship where the following occur: I choose not to answer Const General: no acute distress and alert HENMT Ears: TM's normal bilaterally and EAC's normal Throat: Yes posterior oropharynx normal and Yes tonsils normal (no TP congestion noted) Neck Neck: Yes supple and No lymphadenopathy Thyroid: Thyroid normal Resp Auscultation: clear to auscultation bilaterally, no rales and no wheezes Cardio Rate: regular rate Rhythm: regular rhythm Heart sounds: no murmurs GI Palpation (GI): Soft to palpation and nontender Auscultation: normal bowel sounds General: Yes no CVA tenderness Back/Spine/Pelvis Back: no CVA tenderness Cervical Spine: cervical muscular tenderness (especially over the trapezius muscles around the shoulders bilaterally) and Cervical spine tenderness Thoracic/Lumbar Spine: lumbar spinal tenderness (mild) Skin Rashes: no rashes Extrem General: Yes no clubbing, cyanosis or edema Right upper extremity: shoulder/upper arm Details: tenderness Location: of the A-C joint and of the scapula and elbow/forearm Details: tenderness Location: of the olecranon; no swelling Left upper extremity: shoulder/upper arm Details: tenderness Location: of the A-C joint and of the scapula Right lower extremity: hip/thigh Details: tenderness Location: of the hip and normal ROM Coding Level of Care Code Est Pt Level 4 (75822) Diagnoses Migraine without status migrainosus, not intractable, unspecified migraine type G43.909 Intractability: not intractable Migraine type: unspecified Status migrainosus presence: without status migrainosus Bilateral shoulder pain, unspecified chronicity M25.511; M25.512 Chronicity: unspecified Arthralgia, unspecified joint M25.50 Joint pain location: unspecified Right hip pain M25.551 Fibromyalgia M79.7 Radicular syndrome of upper limbs M54.12 Smoker F17.200 Colon cancer screening Z12.11 Osteoporosis screening Z13.820 Additional Codes PHQ-9 - 32321 - PHQ-9 Billing: Yes ([id number]) Assessment & Plan Assessment & Plan (1) Migraine: Code(s): G43.909 - Migraine, unspecified, not intractable, without status migrainosus Category: Medical Qualifiers: Intractability: not intractable Migraine type: unspecified Status migrainosus presence: without status migrainosus Qualified Code(s): G43.909 - Migraine, unspecified, not intractable, without status migrainosus Plan: Head CT done in December 2021 came out normal Reinforced avoidance of migraine headache triggers Continue Fioricet 1 tablet 3 to 4 times a day as needed If her headaches get worse, will consider repeat head CT and/or neurology referral for further evaluation (2) Bilateral shoulder pain: Code(s): M25.511 - Pain in right shoulder; M25.512 - Pain in left shoulder Category: Medical Qualifiers: Chronicity: unspecified Qualified Code(s): M25.511 - Pain in right shoulder; M25.512 - Pain in left shoulder Plan: Patient is advised again that her shoulder symptoms are most likely related to her fibromyalgia Right shoulder x-rays done last year came back normal (3) Arthralgia: Code(s): M25.50 - Pain in unspecified joint Category: Medical Qualifiers: Joint pain location: unspecified Qualified Code(s): M25.50 - Pain in unspecified joint Plan: These are also most likely related to her fibromyalgia She was on Acetaminophen with Codeine 300-60 mg 1 tablet TID PRN in the past but has been having a hard time getting this refilled for a while due to unavailability of the Rx at the pharmacy and she was eventually switched over to Tramadol 50 mg TID PRN Patient still has not been able to get her previously ordered labs done yet even though they were initially ordered almost a year ago now - these are again updated and patient is instructed to go and get these done LARON Have advised her that she has been putting these off for far too long and continuing to NOT do them will also constitute non-compliance with her treatment regimen and potentially jeopardize her future Rx refills She has been advised that if her labs are unrevealing, will consider referring her to rheumatology for further evaluation and management She had her cervical spine, shoulder, elbow and hip x-rays done last year - x-rays of the cervical spine revealed (+) mild degenerative disc disease at C5-C6 X-rays of the shoulder and hip came back normal Elbow x-rays revealed (+) small ossification adjacent to the tip of the coronoid process of the ulna, possibly reflecting an age-indeterminate fracture versus a dystrophic calcification of the capsule. There is no effusion noted in the joint She was referred to orthopedics for further evaluation - to follow up with orthopedics as scheduled (4) Right hip pain: Code(s): M25.551 - Pain in right hip Category: Medical Plan: Right hip MRI done in January 2025 revealed (+) mild relatively linear intermediate signal intensity along the base of the right anterior superior labrum may be degenerative in nature. A labral tear cannot be definitely excluded; there is no evidence of a paralabral cyst. Mild tendinosis/minimal peritendinosis at level of right gluteus medius muscle and minimal peritendinosis at level of right gluteus minimus muscle She was seen by orthopedics and was recommended to undergo a trial of cortisone injection for possible trochanteric bursitis but patient did not show up for her appointment with orthopedics recently States that she remains unconvinced about her hip issues and felt that her concerns and opinions were completely ignored by orthopedics when she was last seen so she did not agree to proceed with the cortisone injection (5) Fibromyalgia: Code(s): M79.7 - Fibromyalgia Category: Medical Plan: Patient is again encouraged to continue with regular exercises and physical activity as tolerated to help better manage her fibromyalgia symptoms (6) Radicular syndrome of upper limbs: Code(s): M54.12 - Radiculopathy, cervical region Category: Medical Plan: NCV and EMG of the upper extremities done in December 2021 came out normal She was sent for some labs for further evaluation a few times over the past couple of years but is still not able to get them done yet; she is instructed to get her labs done LARON - previous lab orders updated again Follow up with neurology (Dr. Franz) as scheduled (7) Smoker: Code(s): F17.200 - Nicotine dependence, unspecified, uncomplicated Category: Social Hx Plan: Patient is counseled again on complete smoking cessation (8) Colon cancer screening: Code(s): Z12.11 - Encounter for screening for malignant neoplasm of colon Category: Medical Plan: She has also not gotten any of her past Cologuard tests done yet at this time even though 3 tests have already been ordered so far Patient states that she decided that it was not worth doing the test (after giving it some thought) if there is a chance that she is just going to get a false positive test States that she is pooping fine and does not feel that she has any issues at this time even though we have explained to her more than once that colon cancer usually does not present with any obvious symptoms in the beginning and by the time she has any symptoms, her condition may already be in the late stages (ironically, patient also again mentions as she had in the past that she does have a family Hx of colon cancer) After another lengthy discussion with patient regarding this, and the fact that if she did not get the test done, then she will not even have a chance for it to come back negative (false results or not), andgeuro finally agreed to have another Cologuard test ordered and states that she will get it done so she can get this over with - Cologuard test REordered (9) Osteoporosis screening: Code(s): Z13.820 - Encounter for screening for osteoporosis Category: Medical Plan: Patient states that she has not had a menstrual period in about 10 years now and has been experiencing some symptoms of menopause for a while now, including dry skin and hot flashes Will send her for BMD for osteoporosis screening Plan Follow up in 4 months Orders: Orders XR DEXA axial skeleton 08/26/25 Z78.0 - Asymptomatic menopausal state Referrals Cologuard Test Z12.11 - Encounter for screening for malignant neoplasm of colon
[2025-08-26 15:39] VITALS: BP 120/76; PULSE 70; O2SAT 97; BMI 29.1
== END 2025-08-26 16:26 | disposition home or self-care (01) ==
LOC: HO.HMCH 15:30
PROVIDERS: PCP Internal Medicine; Visit Provider Internal Medicine
DX: G43.909 Migraine, unspecified, not intractable, without status migrainosus (principal); M25.511 Pain in right shoulder; M25.512 Pain in left shoulder; M25.50 Pain in unspecified joint; M25.551 Pain in right hip; M79.7 Fibromyalgia; M54.12 Radiculopathy, cervical region; F17.200 Nicotine dependence, unspecified, uncomplicated; Z12.11 Encounter for screening for malignant neoplasm of colon; Z13.820 Encounter for screening for osteoporosis

== ENCOUNTER → 2025-08-26 15:29 | Outpatient (BNVA) | payer OTHER, SELFPAY | PROVIDERS: PCP Internal Medicine; Visit Provider Internal Medicine | DX: M25.551 Pain in right hip (principal); M25.511 Pain in right shoulder; M25.512 Pain in left shoulder; G43.909 Migraine, unspecified, not intractable, without status migrainosus; M79.7 Fibromyalgia; M54.12 Radiculopathy, cervical region; Z78.0 Asymptomatic menopausal state; F17.210 Nicotine dependence, cigarettes, uncomplicated | CPT/HCPCS: 96127; 99212 ==